=== PATIENT | male | born 1950 | race Caucasian/White ===

== ENCOUNTER 2021-01-16 09:09 | Inpatient (IN) ==
[2021-01-16] MEDS ORDERED: ONDANSETRON INJ 2 MG/ML 2 ML VIAL IV STA (10:11)
--- NOTE | 2021-01-16 10:14 | Emergency Department Note ---
Impression & Plan Diffuse abdominal pain, Anemia, Bladder cancer, Acute dehydration, Weakness ED Provider Note NAME: ARRON WHITLOCK AGE: 70 SEX: M : 1950 ARRIVES VIA: Walk-In INFORMANT: [Patient] ED PROVIDER(S): [Balbir Burnett MD] CHIEF COMPLAINT: Abdominal pain HISTORY OF PRESENT ILLNESS: The patient is a 70-year-old male who has not felt well for a month. He has lost 10 to 15 pounds. He feels weak. He has no appetite. He has had intermittent diarrhea and intermittent crampy abdominal pain. Currently, the pain is a 6 on a scale of 1-10. The patient states that he did finish some antibiotics for a port infection, he is not sure if this is related or not. The patient does have bladder cancer. His last chemotherapy was over 6 months ago. Recently, they found recurrence and he is scheduled for chemotherapy again tomorrow although, he feels it will be canceled. The patient went to his doctor's office today because of how he was doing, he was sent here for further work-up. There has been no cough or congestion. He has not had fever. He denies any difficulty moving his urine or any urinary burning. REVIEW OF SYSTEMS: See HPI for pertinent positives and negatives. A total of ten systems were reviewed and were otherwise negative. PMHx/PSHx: See Below SOCIAL HISTORY: See Below. PHYSICAL EXAM: GENERAL: Patient is in no acute distress. HEENT: No acute trauma, normocephalic atraumatic, mucous membranes moist, no nasal congestion, no scleral icterus. NECK: No stridor, no adenopathy, no meningismus, trachea is midline. LUNGS: Clear to auscultation bilaterally, no wheeze, no rhonchi, breath sounds equal. HEART: Without murmurs gallops or rubs, regular rate and rhythm. ABDOMEN: Soft, moderately diffusely tender, bowel sounds positive, no hernias, no peritonitis. EXTREMITIES: No cyanosis or edema, full range of motion of all the joints without pain or difficulty, no signs for acute trauma. NEUROLOGIC: Oriented x 3, no acute motor or sensory deficits, no focal weakness. SKIN: No rash, no jaundice, no diaphoresis. Groin: No scrotal erythema. Rectal: Brown stool, heme-negative, a firm mass was felt on my exam. DIFFERENTIAL DIAGNOSIS: Appendicitis, testicular torsion, infections, diverticulitis, UTI, obstruction, mesenteric ischemia, aortic pathology, inflammatory bowel disease, renal colic, PUD, pancreatitis, biliary pathology, hernia, volvulus, constipation, dehydration, malignancy, as well as other pathologies. EMERGENCY DEPARTMENT COURSE/PROCEDURES: ECG: Indication was weakness. The ECG shows a normal sinus rhythm with a rate of 63. There is no ST elevation, no PVCs. The QTc is 405. Continuous Cardiac Monitoring: An order was placed for continuous cardiac monitoring. The monitor shows a rate of 62 with normal sinus rhythm. Critical Care Note: I have personally spent 42 minutes of critical care time in the direct management of this patient. This includes bedside care, interpretation of diagnostic studies, and testing, discussion with consultants, patient, and family members, and other required patient management activities. This 42 minutes is in excess of all separately billable procedures. MEDICAL DECISION MAKING: There is a lower white blood cell count. The patient is anemic with a hemoglobin of 8.6. Rectal exam was performed, stool was brown and heme-neg ative. A mass was felt on rectal exam. There is a low platelet count at 31. No coagulopathy. Potassium is low at 3.1. No kidney failure. No concerning liver enzyme elevation. No evidence for pa ncreatitis. The patient appears to be in a euthyroid state. Urinalysis shows possible infection versus contamination. Stool C. difficile testing was negative. Digoxin level was therapeutic. Covid testing returned positive. ECG showed a sinus rhythm, no acute ischemia. Cardiac enzyme testing x1 is not consistent with acute cardiac injury. Chest x-ray does not show any pneumonia or CHF. Abdominal and pelvis CT shows worsening of his cancer with metastatic disease. No bowel obstruction. The patient received IV saline for hydration. He was given IV potassium, IV Zofran and IV morphine, he received IV ceftriaxone as antibiotic coverage. The patient presents with increasing weakness, weight loss, fatigue. He has findings suggestive of metastatic cancer. He is dehydrated. He has a low platelet count, he is anemic. He may have a UTI. He is Covid positive. He is failing outpatient treatment and is in need of a hospital stay. I spoke to the patient and case management, the on-call hospitalist was consulted. Past Med/Surg History Medical History Cancer BLADDER-CHEMO [id number]/20 FOLLOWING WITH [facility]- GOING TO GET REPEAT CT SCAN IN FUTURE Chronic back pain LOWER BACK Chronic prostatitis DVT (deep venous thrombosis) SUMMER 2019- DECREASED ACTIVITY SECONDARY TO BACK PAIN - HAD FILTER PLACED AND RECENTLY REMOVED History of COVID-19 HLD (hyperlipidemia) Metastatic urothelial carcinoma PAF (paroxysmal atrial fibrillation) Pancytopenia due to chemotherapy Pulmonary embolism SUMMER 2019-PLACED ON ELIQUIS Surgical History (Updated 01/16/21 @ 14:34 by Tosha Turner PA-C) History of arthroscopy RIGHT KNEE History of biopsy of bladder History of colonoscopy History of embolic filter insertion History of herniorrhaphy History of tonsillectomy Family History Aunt Family history of diabetes mellitus Mother Cancer Diabetes Father Stroke Social History Smoking Status: Never smoker Second Hand Exposure: Yes (FATHER SMOKED); Hx Alcohol Use: No Hx Substance Use: No Preferred Language: Italian Communication Ability: Effective Doll Wig Hackler Required: No Beliefs That Will Affect Care: None marital status: / Current Living Situation: Alone Feels Safe at Home: Yes Assistive Devices: Glasses Allergies Allergies Allergy/AdvReac Type Severity Reaction Status Date / Time Whjghlb-Dud-Uqb Reductase AdvReac Unknown SWELLING Verified 01/16/21 10:13 Inhibitor LEGS,MEMORY ISSUES Home Meds Home Medications Medication Instructions Recorded Confirmed digoxin 250 mcg PO HS 08/06/20 01/16/21 ondansetron HCl [Zofran] 8 mg PO Q8H PRN 08/06/20 01/16/21 prochlorperazine maleate 10 mg PO Q8H PRN 08/06/20 01/16/21 [Compazine] tramadol 50 mg PO Q4H PRN 08/06/20 01/16/21 [id number]-vit K-lycop 1 tab PO QAM 01/16/21 01/16/21 [One-A-Day Men's 50 Plus] Results & Data (ED) Vital Signs Vital Signs - 24 hr 01/16/21 09:16 01/16/21 10:21 01/16/21 10:38 Temperature 36.9 C Temperature Source Temporal Artery Scan Pulse Rate 92 H 68 Pulse Rate [Right Finger] 60 Pulse Rate from SpO2 Sensor Pulse Rhythm Regular Pulse Strength Normal Respiratory Rate 18 20 18 Respiratory Effort / Characteristics Non-Labored Spontaneous Non-Labored Respiratory Depth Normal Normal Blood Pressure 127/80 Blood Pressure [Right Arm] 150/83 H Blood Pressure Mean 95 Blood Pressure Mean [Right Arm] 105 Pulse Oximetry 99 100 100 Oxygen Delivery Method Room Air Room Air Room Air Sepsis Recent Fever Within 48 Hours No Sepsis New/Unexplained Change in Mental Status N/A Sepsis Action Taken by Nursing No Action Required 01/16/21 11:00 01/16/21 11:30 01/16/21 12:23 Temperature Temperature Source Pulse Rate 67 61 Pulse Rate [Right Finger] Pulse Rate from SpO2 Sensor 69 66 60 Pulse Rhythm Pulse Strength Respiratory Rate 15 18 Respiratory Effort / Characteristics Respiratory Depth Blood Pressure 154/91 H 161/89 H Blood Pressure [Right Arm] Blood Pressure Mean 112 113 Blood Pressure Mean [Right Arm] Pulse Oximetry 97 100 100 Oxygen Delivery Method Sepsis Recent Fever Within 48 Hours Sepsis New/Unexplained Change in Mental Status Sepsis Action Taken by Nursing 01/16/21 12:30 01/16/21 13:00 01/16/21 13:30 Temperature Temperature Source Pulse Rate 63 55 L 59 L Pulse Rate [Right Finger] Pulse Rate from SpO2 Sensor 63 56 L 59 L Pulse Rhythm Pulse Strength Respiratory Rate 10 L 14 12 Respiratory Effort / Characteristics Respiratory Depth Blood Pressure 153/83 H 169/85 H 153/85 H Blood Pressure [Right Arm] Blood Pressure Mean 106 113 107 Blood Pressure Mean [Right Arm] Pulse Oximetry 99 98 97 Oxygen Delivery Method Room Air Room Air Room Air Sepsis Recent Fever Within 48 Hours Sepsis New/Unexplained Change in Mental Status Sepsis Action Taken by Nursing 01/16/21 14:00 01/16/21 14:30 01/16/21 14:31 Temperature Temperature Source Pulse Rate 56 L 57 L 60 Pulse Rate [Right Finger] Pulse Rate from SpO2 Sensor 56 L 61 Pulse Rhythm Pulse Strength Respiratory Rate 16 16 17 Respiratory Effort / Characteristics Respiratory Depth Blood Pressure 154/88 H 167/92 H Blood Pressure [Right Arm] Blood Pressure Mean 110 117 Blood Pressure Mean [Right Arm] Pulse Oximetry 100 99 Oxygen Delivery Method Room Air Room Air Sepsis Recent Fever Within 48 Hours Sepsis New/Unexplained Change in Mental Status Sepsis Action Taken by Nursing 01/16/21 15:00 01/16/21 15:30 01/16/21 16:00 Temperature Temperature Source Pulse Rate 62 57 L 62 Pulse Rate [Right Finger] Pulse Rate from SpO2 Sensor 63 58 L 63 Pulse Rhythm Pulse Strength Respiratory Rate 20 18 12 Respiratory Effort / Characteristics Respiratory Depth Blood Pressure 159/96 H 158/85 H 146/77 H Blood Pressure [Right Arm] Blood Pressure Mean 117 109 100 Blood Pressure Mean [Right Arm] Pulse Oximetry 100 95 96 Oxygen Delivery Method Room Air Room Air Room Air Sepsis Recent Fever Within 48 Hours Sepsis New/Unexplained Change in Mental Status Sepsis Action Taken by Nursing 01/16/21 16:30 01/16/21 17:00 01/16/21 17:30 Temperature Temperature Source Pulse Rate 76 59 L 62 Pulse Rate [Right Finger] Pulse Rate from SpO2 Sensor 59 L 62 Pulse Rhythm Pulse Strength Respiratory Rate 10 L 20 17 Respiratory Effort / Characteristics Respiratory Depth Blood Pressure 134/77 127/71 121/67 Blood Pressure [Right Arm] Blood Pressure Mean 96 89 85 Blood Pressure Mean [Right Arm] Pulse Oximetry 93 95 96 Oxygen Delivery Method Room Air Room Air Sepsis Recent Fever Within 48 Hours Sepsis New/Unexplained Change in Mental Status Sepsis Action Taken by [facility] Medications Current Medication List: was personally reviewed by me Laboratory Data Attestation: I reviewed the patient's lab results. Result diagrams: 01/16/21 10:43 01/16/21 10:48 Lab Results 01/16/21 01/16/21 01/16/21 Range/Units 10:11 10:11 10:43 WBC 3.82 L (4.8-10.8) K/uL RBC 2.91 L (4.7-6.1) M/uL Hgb 8.6 L (14.0-18.0) g/dL Hct 25.6 L (42-52) % MCV 88.0 (80-100) fL MCH 29.6 (25-34) pg MCHC 33.6 (32-36) g/dL RDW Std Deviation 52.4 H (36.4-46.3) fL RDW Coeff of Dg 16.3 H (11.5-14.5) % Plt Count 31 L (130-400) K/uL Immature Gran % (Auto) 1.0 % Neut % (Auto) 59.4 % Lymph % (Auto) 22.5 % [place] % (Auto) 16.8 % Eos % (Auto) 0.3 % Baso % (Auto) 0.0 % Neut # (Auto) 2.27 (1.4-6.5) K/uL Lymph # (Auto) 0.86 L (1.2-3.4) K/uL [place] # (Auto) 0.64 H (0.11-0.59) K/uL Eos # (Auto) 0.01 (0-0.5) K/uL Baso # (Auto) 0.00 (0-0.2) K/uL Immature Gran # (Auto) 0.04 H (0.00-0.02) K/uL Platelet Estimate Decreased L (Normal) RBC Morphology Unremarkable PT 11.4 (9.0-12.0) Seconds INR 1.1 (0.9-1.1) APTT 25.8 (21.0-31.0) Seconds PTT Ratio 1.0 Sodium (136-145) mmol/L Potassium (3.5-5.1) mmol/L Chloride (98-107) mmol/L Carbon Dioxide (21-32) mmol/L Anion Gap (3-11) BUN (7-18) mg/dl Creatinine (0.6-1.4) mg/dl Est Cr Clr Drug Dosing ml/min Est GFR ( Amer) ml/min Est GFR (Non-Af Amer) ml/min BUN/Creatinine Ratio (10-20) Glucose (70-99) mg/dl Lactate (0.4-2.0) mmol/L Calcium (8.5-10.1) mg/dl Magnesium (1.8-2.4) mg/dl Total Bilirubin (0.2-1) mg/dl AST (15-37) U/L ALT (12-78) U/L Alkaline Phosphatase (45-117) U/L Troponin I (0-0.045) ng/ml Total Protein (6.4-8.2) gm/dl Albumin (3.4-5.0) gm/dl Globulin (2.5-4.0) gm/dl Albumin/Globulin Ratio (0.9-2) Lipase (73-393) U/L TSH (0.300-4.500) uIu/ml Urine Color Urine Appearance (Clear) Urine pH (4.5-7.5) Ur Specific [place] (1.000-1.030) Urine Protein (Negative) Urine Glucose (UA) (Negative) Urine Ketones (Negative) Urine Blood (Negative) Urine Nitrite (Negative) Urine Bilirubin (Negative) Urine Urobilinogen (Negative) Ur Leukocyte Esterase (Negative) Urine WBC (Auto) (0-5) /hpf Urine RBC (Auto) (0-4) /hpf U Hyaline Cast (Auto) (0-5) /lpf U Epithel Cells (Auto) (0-5) /lpf Urine Bacteria (Auto) (Negative) Ur Renal Epithelial Cell Granular Casts (0) /lpf Stl C. diff Tox B Gene (Neg) Digoxin 1.5 (0.8-2.0) ng/ml COVID-19 Eval Order SARS-CoV-2 (PCR) (Negative) 01/16/21 01/16/21 01/16/21 Range/Units 10:48 11:18 11:18 WBC (4.8-10.8) K/uL RBC (4.7-6.1) M/uL Hgb (14.0-18.0) g/dL Hct (42-52) % MCV (80-100) fL MCH (25-34) pg MCHC (32-36) g/dL RDW Std Deviation (36.4-46.3) fL RDW Coeff of Dg (11.5-14.5) % Plt Count (130-400) K/uL Immature Gran % (Auto) % Neut % (Auto) % Lymph % (Auto) % [place] % (Auto) % Eos % (Auto) % Baso % (Auto) % Neut # (Auto) (1.4-6.5) K/uL Lymph # (Auto) (1.2-3.4) K/uL [place] # (Auto) (0.11-0.59) K/uL Eos # (Auto) (0-0.5) K/uL Baso # (Auto) (0-0.2) K/uL Immature Gran # (Auto) (0.00-0.02) K/uL Platelet Estimate (Normal) RBC Morphology PT (9.0-12.0) Seconds INR (0.9-1.1) APTT (21.0-31.0) Seconds PTT Ratio Sodium 137 (136-145) mmol/L Potassium 3.1 L (3.5-5.1) mmol/L Chloride 100 (98-107) mmol/L Carbon Dioxide 27 (21-32) mmol/L Anion Gap 10.0 (3-11) BUN 13 (7-18) mg/dl Creatinine 1.01 (0.6-1.4) mg/dl Est Cr Clr Drug Dosing 74.8 ml/min Est GFR ( Amer) 87.6 ml/min Est GFR (Non-Af Amer) 75.5 ml/min BUN/Creatinine Ratio 12.8 (10-20) Glucose 71 (70-99) mg/dl Lactate (0.4-2.0) mmol/L Calcium 9.8 (8.5-10.1) mg/dl Magnesium 2.0 (1.8-2.4) mg/dl Total Bilirubin 0.5 (0.2-1) mg/dl AST 20 (15-37) U/L ALT 14 (12-78) U/L Alkaline Phosphatase 73 (45-117) U/L Troponin I < 0.015 (0-0.045) ng/ml Total Protein 7.5 (6.4-8.2) gm/dl Albumin 3.3 L (3.4-5.0) gm/dl Globulin 4.2 H (2.5-4.0) gm/dl Albumin/Globulin Ratio 0.8 L (0.9-2) Lipase 59 L (73-393) U/L TSH 3.100 (0.300-4.500) uIu/ml Urine Color Dark Yellow Urine Appearance Cloudy A (Clear) Urine pH 5.5 (4.5-7.5) Ur Specific [place] 1.022 (1.000-1.030) Urine Protein 1+ H (Negative) Urine Glucose (UA) Negative (Negative) Urine Ketones 3+ H (Negative) Urine Blood Negative (Negative) Urine Nitrite Negative (Negative) Urine Bilirubin 1+ H (Negative) Urine Urobilinogen Negative (Negative) Ur Leukocyte Esterase 1+ H (Negative) Urine WBC (Auto) >30 H (0-5) /hpf Urine RBC (Auto) 0-4 (0-4) /hpf U Hyaline Cast (Auto) 1-5 (0-5) /lpf U Epithel Cells (Auto) >30 H (0-5) /lpf Urine Bacteria (Auto) Negative (Negative) Ur Renal Epithelial Cell Not Reportable Granular Casts 1-5 H (0) /lpf Stl C. diff Tox B Gene Negative Cdiff Gene (Neg) Digoxin (0.8-2.0) ng/ml COVID-19 Eval Order SARS-CoV-2 (PCR) (Negative) 01/16/21 01/16/21 01/16/21 Range/Units 11:42 13:20 13:20 WBC (4.8-10.8) K/uL RBC (4.7-6.1) M/uL Hgb (14.0-18.0) g/dL Hct (42-52) % MCV (80-100) fL MCH (25-34) pg MCHC (32-36) g/dL RDW Std Deviation (36.4-46.3) fL RDW Coeff of Dg (11.5-14.5) % Plt Count (130-400) K/uL Immature Gran % (Auto) % Neut % (Auto) % Lymph % (Auto) % [place] % (Auto) % Eos % (Auto) % Baso % (Auto) % Neut # (Auto) (1.4-6.5) K/uL Lymph # (Auto) (1.2-3.4) K/uL [place] # (Auto) (0.11-0.59) K/uL Eos # (Auto) (0-0.5) K/uL Baso # (Auto) (0-0.2) K/uL Immature Gran # (Auto) (0.00-0.02) K/uL Platelet Estimate (Normal) RBC Morphology PT (9.0-12.0) Seconds INR (0.9-1.1) APTT (21.0-31.0) Seconds PTT Ratio Sodium (136-145) mmol/L Potassium (3.5-5.1) mmol/L Chloride (98-107) mmol/L Carbon Dioxide (21-32) mmol/L Anion Gap (3-11) BUN (7-18) mg/dl Creatinine (0.6-1.4) mg/dl Est Cr Clr Drug Dosing ml/min Est GFR ( Amer) ml/min Est GFR (Non-Af Amer) ml/min BUN/Creatinine Ratio (10-20) Glucose (70-99) mg/dl Lactate 1.0 (0.4-2.0) mmol/L Calcium (8.5-10.1) mg/dl Magnesium (1.8-2.4) mg/dl Total Bilirubin (0.2-1) mg/dl AST (15-37) U/L ALT (12-78) U/L Alkaline Phosphatase (45-117) U/L Troponin I (0-0.045) ng/ml Total Protein (6.4-8.2) gm/dl Albumin (3.4-5.0) gm/dl Globulin (2.5-4.0) gm/dl Albumin/Globulin Ratio (0.9-2) Lipase (73-393) U/L TSH (0.300-4.500) uIu/ml Urine Color Urine Appearance (Clear) Urine pH (4.5-7.5) Ur Specific [place] (1.000-1.030) Urine Protein (Negative) Urine Glucose (UA) (Negative) Urine Ketones (Negative) Urine Blood (Negative) Urine Nitrite (Negative) Urine Bilirubin (Negative) Urine Urobilinogen (Negative) Ur Leukocyte Esterase (Negative) Urine WBC (Auto) (0-5) /hpf Urine RBC (Auto) (0-4) /hpf U Hyaline Cast (Auto) (0-5) /lpf U Epithel Cells (Auto) (0-5) /lpf Urine Bacteria (Auto) (Negative) Ur Renal Epithelial Cell Granular Casts (0) /lpf Stl C. diff Tox B Gene (Neg) Digoxin (0.8-2.0) ng/ml COVID-19 Eval Order Covid19 at [facility] SARS-CoV-2 (PCR) POSITIVE A* (Negative) Administered Medications Morphine Sulfate (Morphine Sulfate 4 Mg/Ml 1 Ml Carp\Vial) 4 mg IV Q30M PRN PRN Reason: Pain Stop: 01/30/21 10:10 Last Admin: 01/16/21 13:24 Dose: 4 mg Documented by: [id number] Admin: 01/16/21 12:24 Dose: 4 mg Documented by: [id number] Admin: 01/16/21 11:26 Dose: 4 mg Documented by: [id number] Discontinued Medications Sodium Chloride (Nss 1000ml) 1,000 mls @ 999 mls/hr IV .Q1H1M OSMANI Stop: 01/16/21 11:15 Last Infusion: 01/16/21 12:01 Dose: 0 mls/hr Documented by: [id number] Admin: 01/16/21 11:00 Dose: 999 mls/hr Documented by: [id number] Potassium Chloride (K Lyndon / Wtr) 10 meq in 100 mls @ 100 mls/hr IV ONE ONE Stop: 01/16/21 12:45 Last Infusion: 01/16/21 13:27 Dose: 0 mls/hr Documented by: [id number] Admin: 01/16/21 12:27 Dose: 100 mls/hr Documented by: [id number] Ceftriaxone Sodium (Rocephin) 1,000 mg in 50 mls @ 100 mls/hr IV NOW STA Stop: 01/16/21 13:30 Last Infusion: 01/16/21 13:57 Dose: 0 mls/hr Documented by: [id number] Admin: 01/16/21 13:27 Dose: 100 mls/hr Documented by: [id number] Ioversol (Optiray 300 100ml) 85 ml IV ONCE ONE Stop: 01/16/21 12:08 Last Admin: 01/16/21 12:07 Dose: 85 ml Documented by: [id number] Ondansetron HCl (Ondansetron Inj 2 Mg/Ml 2 Ml Vial) 4 mg IV NOW STA Stop: 01/16/21 10:12 Last Admin: 01/16/21 11:26 Dose: 4 mg Documented by: [id number] Potassium Chloride (Potassium Chloride 10 Meq Tabcr) 30 meq PO NOW STA Stop: 01/16/21 14:10 Last Admin: 01/16/21 14:23 Dose: 30 meq Documented by: [id number] Imaging Data Radiologist's Impression: Chest X-Ray 01/16/21 10:11 XR chest 1V portable CLINICAL HISTORY: weakness COMPARISON STUDY: No previous studies for comparison. FINDINGS: Lung volumes are normal. Lungs are clear. There is no pneumothorax or pleural effusion. Cardiac size is normal. Mediastinal contours are normal. There is no evidence for pulmonary edema. Right internal jugular [id number]-i-Jehh is in place. A 2.1 cm nodular opacity projects over the left lower lung. IMPRESSION: 1. No acute cardiopulmonary findings. 2. 1 cm nodular opacity which projects over the left lower lung. This could reflect a nipple shadow or pulmonary nodule. Nonemergent PA and shallow oblique radiographs of the chest with nipple markers could be obtained. ACT 112: Negative or not required by law. Electronically signed by: Polo Smith M.D. 01/16/2021 10:39 AM Abdomen/Pelvis CT 01/16/21 10:14 CT SCAN OF THE ABDOMEN AND PELVIS WITH IV CONTRAST CLINICAL HISTORY: Lower abdominal pain. Diarrhea. Bladder cancer. COMPARISON STUDY: No priors. TECHNIQUE: Following the IV administration of 85 cc of Optiray, CT scan of the abdomen and pelvis is performed from the lung bases to the proximal femora. Images are reviewed in the axial, sagittal, and coronal planes. IV contrast was administered without complication. A dose lowering technique was utilized adhering to the principles of ALARA. CT DOSE: 418.75 mGy.cm FINDINGS: Lung bases: The heart is top normal in size and without pericardial effusion. There are coronary artery calcifications. There is a 2 cm lobular pulmonary nodules seen at the left lung base on image #7. A 0.9 cm irregular pulmonary nodules seen at the right lung base on image #43. No airspace consolidation or pleural effusion is identified. A fat-containing Bochdalek hernia is noted at the right lung base. There is bibasilar scarring/atelectasis. Liver: The contrast-enhanced liver is normal in size, contour, and attenuation. There is no intrahepatic biliary ductal dilatation. The hepatic veins and portal veins are patent. Gallbladder: A calcified gallstone measures at least 2 cm[address] is no [address] evidence of acute cholecystitis. Spleen: The spleen is mildly enlarged measuring 13.7 cm in length. Pancreas: Unremarkable. Adrenal glands: Unremarkable. Kidneys: The contrast enhanced kidneys demonstrate mild cortical atrophy. There is mild to moderate left hydroureteronephrosis. No hydronephrosis is seen on the right. There is a 4 mm nonobstructing calculus in the right lower pole. The kidneys enhance symmetrically. Bilateral renal cysts measure up to 1.5 cm. Additional subcentimeter cortical hypodensities also likely represent cysts but are too small for definitive characterization. Abdominal vasculature: The abdominal aorta is normal in course and caliber noting mild to moderate atherosclerotic calcification. Bowel: Residual enteric contrast is noted in the colon. There is no bowel obstruction. There is circumferential rectal wall thickening and perirectal inflammation. The rectosigmoid colon is encased by pelvic mass lesions. The appendix is well-visualized and normal. Peritoneum: There is trace perihepatic ascites. No intraperitoneal free air is identified. There are numerous subcentimeter peritoneal nodules (best seen on axial image #187). Lymphadenopathy: There is bulky retroperitoneal and iliac chain lymphadenopathy. A left periaortic cameron aggregate on image #142 measures 3.3 x 2.1 cm. A right iliac chain node on image #291 measures 2.3 x 2.0 cm. The enlarged retrocrural node on image #62 measures 1.7 x 1.2 cm. Pelvic viscera: The prostate gland is enlarged and markedly heterogeneous, measuring 5.4 cm transverse diameter. There is median lobe hypertrophy. The bladder is decompressed and not assessed. The bladder wall is partially thickened and there is pericystic inflammation. Hyperdense material is suggested within the bladder lumen and may represent excreted contrast versus blood products. There are large mass lesions identified in the pelvis which are locate d posterior to the bladder and surrounding the rectosigmoid colon. A lesion in the left posterior pelvis on image #308 measures approximately 5 x 2.5 cm. A lesion anterior to the sacrum measures approximately 5 x 3.5 cm. Skeletal structures: The skeletal structures are osteopenic. There is mild lumbosacral spondylosis. No lytic or blastic lesions are seen. IMPRESSION: 1. Findings are consistent with widespread metastatic disease. 2. The bladder is decompressed and not well evaluated. Hyperdense material within the bladder lumen may represent excreted IV contrast or possibly blood products. 3. There is significant wall thickening with surrounding inflammation involving the bladder and rectum. This may be represent treatment related radiation cysti tis/proctitis. Clinical correlation will be required. 4. There are bulky mass lesions identified in the pelvis consistent with metastatic disease. These encase the rectosigmoid colon which does not appear obstructed. 5. There is bulky retroperitoneal and iliac chain lymphadenopathy. 6. There are at least 2 pulmonary nodules identified at the lung bases, likely representing metastatic disease. 7. There is evidence of peritoneal carcinomatosis. 8. There is mild to moderate left hydroureteronephrosis, likely related to pelvic mass lesions. 9. Cholelithiasis. 10. Mild splenomegaly. 11. Trace abdominal ascites. 12. Right-sided nephrolithiasis. 13. Additional findings as above. ACT 112: Positive. There are findings on this exam that require communication between the performing entity and the patient following Patient Test Result Information Act ([place] Act 112) guidelines. Electronically signed by: Balbir Anaya M.D. 01/16/2021 12:45 PM Discharge Plan Visit Data Chief Complaint: Abdominal Pain Stated Complaint: PAIN IN STOMACH/DR REFERRED HIM ED Provider: Balbir Burnett Discharge Problem: Diffuse abdominal pain, Anemia, Bladder cancer, Acute dehydration, Weakness Patient Disposition: Admitted As Inpatient Condition: Fair Forms Stand Alone Forms: [facility] [employer] Prescriptions Prescriptions: No Action ondansetron HCl [Zofran] 8 mg Tablet 8 mg PO Q8H PRN (Reason: Nausea) RF: 0 prochlorperazine maleate [Compazine] 10 mg Tablet 10 mg PO Q8H PRN (Reason: Nausea) RF: 0 digoxin 250 mcg (0.25 mg) Tablet 250 mcg PO HS RF: 0 tramadol 50 mg Tablet 50 mg PO Q4H PRN (Reason: Pain) RF: 0 One-A-Day Men's 50 Plus 400-20-370 mcg Tablet 1 tab PO QAM RF: 0 Referrals Referrals: Phillip Rosas MD [Primary Care Provider] - Discharge Problem: Anemia Qualifiers: Anemia type: unspecified type Qualified Code(s): D64.9 - Anemia, unspecified Bladder cancer Qualifiers: Bladder location: unspecified site Qualified Code(s): C67.9 - Malignant neoplasm of bladder, unspecified
[2021-01-16] MEDS ORDERED: SODIUM CHLORIDE 0.9% 1,000 ML IV SCH (10:15)
--- NOTE | 2021-01-16 10:40 | XRay Report ---
XR chest 1V portable CLINICAL HISTORY: weakness COMPARISON STUDY: No previous studies for comparison. FINDINGS: Lung volumes are normal. Lungs are clear. There is no pneumothorax or pleural effusion. Car diac size is normal. Mediastinal contours are normal. There is no evidence for pulmonary edema. Right internal jugular [id number] is in place. A 2.1 cm nodular opacity projects over the left lower sriram ng. IMPRESSION: 1. No acute cardiopulmonary findings. 2. 1 cm nodular opacity which projects over the left lower lung. This could reflect a nipple shadow o r pulmonary nodule. Nonemergent PA and shallow oblique radiographs of the chest with nipple markers c ould be obtained. ACT 112: Negative or not required by law. Electronically signed by: Polo Smith M.D. 01/16/2021 10:39 AM
[2021-01-16] MEDS: MoRPHine SULFATE 4 MG/ML 1 ML CARP\\VIAL IV PRN ×3 (11:26→13:24)
[2021-01-16 11:28] LABS: INR 1.1 (0.9-1.1); Partial Thromboplastin Time 25.8 Seconds (21.0-31.0); Prothrombin Time 11.4 Seconds (9.0-12.0)
[2021-01-16 11:34] LABS: Albumin Level 3.3 gm/dl (3.4-5.0); Aspartate Aminotransferase 20 U/L (15-37); BUN Creatinine Ratio 12.8 (10-20); Blood Urea Nitrogen 13 mg/dl (7-18); Calcium 9.8 mg/dl (8.5-10.1); Carbon Dioxide 27 mmol/L (21-32); Chloride 100 mmol/L (98-107); Creatinine Clr Calc Pharmacy 74.8 ml/min; Est GFR (African American) 87.6 ml/min; Est GFR (Non-African American) 75.5 ml/min; Glucose 71 mg/dl (70-99); Lipase 59 U/L (73-393); Potassium 3.1 mmol/L (3.5-5.1); Sodium 137 mmol/L (136-145)
[2021-01-16 11:35] LABS: Appearance Urine Cloudy (Clear); Bacteria Urine Automated Negative (Negative); Blood Urine Negative (Negative); Color Urine Dark Yellow; Epithelial Cell Urine Auto >30 /lpf (0-5); Glucose Urine UA Negative (Negative); Ketones Urine 3+ (Negative); Leukocyte Esterase Urine 1+ (Negative); Nitrite Urine Negative (Negative); Protein Urine 1+ (Negative); RBC Urine Automated 0-4 /hpf (0-4); Specific Gravity Urine 1.022 (1.000-1.030); Urobilinogen Urine Negative (Negative); WBC Urine Automated >30 /hpf (0-5); pH Urine 5.5 (4.5-7.5)
[2021-01-16 11:36] LABS: Hematocrit (blood only) 25.6 % (42-52); Hemoglobin 8.6 g/dL (14.0-18.0); Mean Corpuscular Hemoglobin 29.6 pg (25-34); RDW Coefficient of Variation 16.3 % (11.5-14.5); RDW Standard Deviation 52.4 fL (36.4-46.3); Red Blood Count 2.91 M/uL (4.7-6.1); White Blood Count 3.82 K/uL (4.8-10.8)
[2021-01-16 11:37] LABS: Mean Corpuscular Hgb Conc 33.6 g/dL (32-36)
[2021-01-16 11:39] LABS: Platelet Count 31 K/uL (130-400)
[2021-01-16 11:40] LABS: Eosinophils # (auto) 0.01 K/uL (0-0.5); Eosinophils % (auto) 0.3 %; Immature Granulocytes # (auto) 0.04 K/uL (0.00-0.02); Lymphocytes # (auto) 0.86 K/uL (1.2-3.4); Lymphocytes % (auto) 22.5 %; Monocytes # (auto) 0.64 K/uL (0.11-0.59); Monocytes % (auto) 16.8 %; Neutrophils # (auto) 2.27 K/uL (1.4-6.5); Neutrophils % (auto) 59.4 %; Platelet Estimate Decreased (Normal); RBC Morphology Unremarkable
[2021-01-16 11:45] LABS: Alanine Aminotransferase 14 U/L (12-78); Albumin Globulin Ratio 0.8 (0.9-2); Alkaline Phosphatase 73 U/L (45-117); Bilirubin,Total 0.5 mg/dl (0.2-1); Globulin 4.2 gm/dl (2.5-4.0); Total Protein 7.5 gm/dl (6.4-8.2); Troponin I < 0.015 ng/ml (0-0.045)
[2021-01-16] MEDS ORDERED: POTASSIUM CHLORIDE / WTR 10 MEQ/100 ML PLCT IV ONE (11:46)
[2021-01-16 11:54] LABS: Bilirubin Urine 1+ (Negative)
[2021-01-16] MEDS ORDERED: OPTIRAY 300 100mL IV ONE (12:07)
--- NOTE | 2021-01-16 12:46 | CT Scan Report ---
CT SCAN OF THE ABDOMEN AND PELVIS WITH IV CONTRAST CLINICAL HISTORY: Lower abdominal pain. Diarrhea. Bladder cancer. COMPARISON STUDY: No priors. TECHNIQUE: Following the IV administration of 85 cc of Optiray, CT scan of the abdomen and pelvis is performed from the lung bases to the proximal femora. Images are reviewed in the axial, sagittal, an d coronal planes. IV contrast was administered without complication. A dose lowering technique was ut ilized adhering to the principles of ALARA. CT DOSE: 418.75 mGy.cm FINDINGS: Lung bases: The heart is top normal in size and without pericardial effusion. There are coronary philip ry calcifications. There is a 2 cm lobular pulmonary nodules seen at the left lung base on image #7. A 0.9 cm irregular pulmonary nodules seen at the right lung base on image #43. No airspace consolidat ion or pleural effusion is identified. A fat-containing Bochdalek hernia is noted at the right lung b ase. There is bibasilar scarring/atelectasis. Liver: The contrast-enhanced liver is normal in size, contour, and attenuation. There is no intrahepa tic biliary ductal dilatation. The hepatic veins and portal veins are patent. Gallbladder: A calcified gallstone measures at least 2 [address] no [address] evidence of acute cholecyst itis. Spleen: The spleen is mildly enlarged measuring 13.7 cm in length. Pancreas: Unremarkable. Adrenal glands: Unremarkable. Kidneys: The contrast enhanced kidneys demonstrate mild cortical atrophy. There is mild to moderate l eft hydroureteronephrosis. No hydronephrosis is seen on the right. There is a 4 mm nonobstructing renuka culus in the right lower pole. The kidneys enhance symmetrically. Bilateral renal cysts measure up to 1.5 cm. Additional subcentimeter cortical hypodensities also likely represent cysts but are too smal l for definitive characterization. Abdominal vasculature: The abdominal aorta is normal in course and caliber noting mild to moderate at herosclerotic calcification. Bowel: Residual enteric contrast is noted in the colon. There is no bowel obstruction. There is circu mferential rectal wall thickening and perirectal inflammation. The rectosigmoid colon is encased by p elvic mass lesions. The appendix is well-visualized and normal. Peritoneum: There is trace perihepatic ascites. No intraperitoneal free air is identified. There are numerous subcentimeter peritoneal nodules (best seen on axial image #187). Lymphadenopathy: There is bulky retroperitoneal and iliac chain lymphadenopathy. A left periaortic no lon aggregate on image #142 measures 3.3 x 2.1 cm. A right iliac chain node on image #291 measures 2. 3 x 2.0 cm. The enlarged retrocrural node on image #62 measures 1.7 x 1.2 cm. Pelvic viscera: The prostate gland is enlarged and markedly heterogeneous, measuring 5.4 cm transvers e diameter. There is median lobe hypertrophy. The bladder is decompressed and not assessed. The bladd er wall is partially thickened and there is pericystic inflammation. Hyperdense material is suggested within the bladder lumen and may represent excreted contrast versus blood products. There are large mass lesions identified in the pelvis which are located posterior to the bladder and surrounding the rectosigmoid colon. A lesion in the left posterior pelvis on image #308 measures approximately 5 x 2. 5 cm. A lesion anterior to the sacrum measures approximately 5 x 3.5 cm. Skeletal structures: The skeletal structures are osteopenic. There is mild lumbosacral spondylosis. N o lytic or blastic lesions are seen. IMPRESSION: 1. Findings are consistent with widespread metastatic disease. 2. The bladder is decompressed and not well evaluated. Hyperdense material within the bladder lumen m ay represent excreted IV contrast or possibly blood products. 3. There is significant wall thickening with surrounding inflammation involving the bladder and rectu m. This may be represent treatment related radiation cystitis/proctitis. Clinical correlation will be required. 4. There are bulky mass lesions identified in the pelvis consistent with metastatic disease. These en case the rectosigmoid colon which does not appear obstructed. 5. There is bulky retroperitoneal and iliac chain lymphadenopathy. 6. There are at least 2 pulmonary nodules identified at the lung bases, likely representing metastati c disease. 7. There is evidence of peritoneal carcinomatosis. 8. There is mild to moderate left hydroureteronephrosis, likely related to pelvic mass lesions. 9. Cholelithiasis. 10. Mild splenomegaly. 11. Trace abdominal ascites. 12. Right-sided nephrolithiasis. 13. Additional findings as above. ACT 112: Positive. There are findings on this exam that require communication between the performing entity and the patient following Patient Test Result Information Act ([place] Act 112) guidelines. Electronically signed by: Balbir Anaya M.D. 01/16/2021 12:45 PM
[2021-01-16] MEDS ORDERED: cefTRIAXone SODIUM 1,000 MG/50 ML BAG IV STA (13:01)
[2021-01-16] MEDS ORDERED: POTASSIUM CHLORIDE 10 MEQ TABCR PO STA (14:09)
--- NOTE | 2021-01-16 14:21 | History & Physical Report ---
Date of Service January 16, 2021 Assessment & Plan (1) Metastatic urothelial carcinoma: (2) Pancytopenia due to chemotherapy: (3) Peritoneal carcinomatosis: (4) History of COVID-19: (5) Abdominal pain: (6) Diarrhea: (7) Hypokalemia: This is a 67-year-old male who has significant past medical history of PAF, HLD, metastatic bladder CA, chronic prostatitis pancytopenia secondary to chemotherapy, history of recent COVID-19 infection presents to ED at the referral of oncology secondary to abdominal pain, weight loss and diarrhea x1 month. Initial diagnosis 06/2018 Status post TURBT local BCG treatment x6 -completed October 2018 Cisplatin and gemcitabine q. 21 days for 4 cycles As of 09/12/2020 he received 4 cycles of chemotherapy Currently has been off chemotherapy for several weeks Follows [facility] hematology/oncology Had CT scan 08/2020 -revealed interval improvement of left periaortic and bilateral pelvic lymphadenopathy, subcentimeter paracaval lymph nodes increased from prior studies, paraesophageal and left hilar adenopathy unchanged, improvem ent in left lower lobe pulmonary nodule. Repeat CT 01/08/21: revealed diffuse perivesicular stranding, interval increase in size of some pelvic retroperitoneal lymph nodes, new mild left renal hydronephrosis with dilation of ureter to the left mid ureter which may reflect extrinsic compression from metastatic lymphadenopathy, ill-defined soft tissue mass in the pelvis which may relate to conglomerate lymphadenopathy increased from prior study also likely worsened metastatic disease, increase in size of metastatic nodule in the left lower lobe. Had repeat done 01/14 as outpt unchanged Imaging today in ED CT a/p: Findings are consistent with widespread metastatic disease. There is significant wall thickening with surrounding inflammation involving the bladder and rectum. This may be represent treatment related radiation cystitis/proctitis. There are bulky mass lesions identified in the pelvis consistent with metastatic disease. These encase the rectosigmoid colon which does not appear obstructed. There is bulky retroperitoneal and iliac chain lymphadenopathy. There are at least 2 pulmonary nodules identified at the lung bases, likely representing metastatic disease. There is evidence of peritoneal carcinomatosis. 8. There is mild to moderate left hydroureteronephrosis, likely related to pelvic mass lesions. Trace abdominal ascites. Pt with clearly widespread metastatic disease of urothelial cell carcinoma with evidence of metastasis to retroperitoneal, iliac chain adenopathy, masslike lesions extending into rectosigmoid colon, pelvic mass lesions extending and compressing on left ureter and evidence of likely peritoneal carcinomatosis. Peritoneal carcinomatosis was not mentioned on prior imaging. Abdominal pain may be in setting of progressing widespread metastatic disease; however infection not entirely ruled out Blood, urine and stool cultures are all pending Treat with IV empiric Rocephin until culture result, add probiotic Admit to med telemetry He is DNR/DNI and wishes for comfort - IVF and antibiotics okay, NO for artificial nutrition or life support Consult palliative care for further establishment of goals of care and pain management IV fluid plus KCl 100 cc/h x 2 L, reevaluate in a.m. Supplement potassium with 30 M EQ orally IV morphine 2 mg every 2 hours as needed severe pain, oral tramadol for moderate pain Consult dietitian PT/OT Hypokalemia replace Weakness and Unintentional weight loss likely in setting of recent covid infection/metastatic disease consult human capital manager PT/OT PAF continue digoxin pt currently in NSR Pancytopenia wbc 3.83 h/h 8.6/25.6 plt 31 no transfusion required at this time monitor DNR/DNI PCP: Alison DVT ppx: SCDs/Teds given thrombocytopenia Pt was seen and examined in collaboration with Dr. Hastings, please see addendum History of Present Illness Chief Complaint: Abdominal pain, weakness and weight loss x 1 month. Primary Care Provider: Phillip Rosas MD This is a 67-year-old male who has significant past medical history of PAF, HLD, metastatic bladder CA, chronic prostatitis pancytopenia secondary to chemotherapy, history of recent COVID-19 infection presents to ED at the referral of oncology secondary to abdominal pain, weight loss and diarrhea x1 month. Daughter is at bedside who provides most of history secondary to fatigue and weakness outpatient. She elicits approximately 3 weeks ago patient was diagnosed with COVID-19 and had fever, chills, respiratory symptoms and fatigue. He recovered from this without any pulmonary involvement. Through the past month he has been complaining of significant abdominal pain, suprapubic and bilateral lower quadrants. Pain is constant, nothing makes it better or worse. He has lost 23 pounds in the past month and overall has had significant decrease water intake. He is drinking water to try to stay hydrated. He also has multiple loose stools a day despite lack of oral intake. He recently was on a course of antibiotics due to a subcutaneous tissue for infection. Oncology was concern for possible C. difficile which is why he was referred to ED. Patient denies any recent fever, chills, sweats, syncope, chest pain, shortness of breath, cough, nausea, vomiting, dysuria, increased urgency or frequency with urination, hematuria, melena or hematochezia. He does feel lightheaded when walking and overall generally weak. In regards to metastatic bladder cancer initially was diagnosed in 06/2018. He had a TURBT, local BCG treatment x6 completed October 2018, cisplatin and gemcitabine q. 21 days for 4 cycles. As of 09/12/2020 he had received 4 cycles of chemotherapy and is currently been off chemotherapy since. Patient did undergo CT abdomen pelvis 01/08/2021 revealed diffuse perivesicular stranding, interval increase in size of some pelvic retroperitoneal lymph nodes, mild left renal hydronephrosis with dilation of ureter to the left mid ureter which may reflect extrinsic compression from metastatic lymphadenopathy, ill-defined soft tissue mass in the pelvis which may relate to conglomerate lymphadenopathy increased from prior study also likely worsened metastatic disease, increase in size of metastatic nodule in the left lower lobe. Given persistent abdominal pain ER repeat scan on 01/13 which did not reveal any worsened findings. CT scan abdomen pelvis today revealed similar findings; however it did also reveal evidence of peritoneal carcinomatosis and trace abdominal ascites. His stool for C. difficile was negative in ED. ER provider perform rectal exam which was heme negative, revealed brown stool and he did hit masslike lesion. He remained hemodynamically stable in ER. There are no signs or symptoms of sepsis. He is afebrile and WBC is 3.82. Allergies Allergy/AdvReac Type Severity Reaction Status Date / Time Zsdnksh-Qvb-Xto Reductase AdvReac Unknown SWELLING Verified 01/16/21 10:13 Inhibitor LEGS,MEMORY ISSUES Home Medications Medication Instructions Recorded Confirmed Type digoxin 250 mcg PO HS 08/06/20 01/16/21 History ondansetron HCl [Zofran] 8 mg PO Q8H PRN 08/06/20 01/16/21 History prochlorperazine maleate 10 mg PO Q8H PRN 08/06/20 01/16/21 History [Compazine] tramadol 50 mg PO Q4H PRN 08/06/20 01/16/21 History vbczxlss-xvm-hsfji-vit K-lycop 1 tab PO QAM 01/16/21 01/16/21 History [One-A-Day Men's 50 Plus] Past Med/Surg History Medical History (Updated 01/16/21 @ 14:42 by Tosha Turner PA-C) Cancer BLADDER-CHEMO [id number]/25/20 FOLLOWING WITH [facility]- GOING TO GET REPEAT CT SCAN IN FUTURE Chronic back pain LOWER BACK Chronic prostatitis DVT (deep venous thrombosis) SUMMER 2019- DECREASED ACTIVITY SECONDARY TO BACK PAIN - HAD FILTER PLACED AND RECENTLY REMOVED History of COVID-19 HLD (hyperlipidemia) Metastatic urothelial carcinoma PAF (paroxysmal atrial fibrillation) Pancytopenia due to chemotherapy Pulmonary embolism SUMMER 2019-PLACED ON ELIQUIS Surgical History (Updated 01/16/21 @ 14:34 by Tosha Turner PA-C) History of arthroscopy RIGHT KNEE History of biopsy of bladder History of colonoscopy History of embolic filter insertion History of herniorrhaphy History of tonsillectomy Family History Aunt Family history of diabetes mellitus Mother Cancer Diabetes Father Stroke Social History (Updated 01/16/21 @ 14:33 by Tosha Turner PA-C) Smoking Status: Never smoker Second Hand Exposure: Yes (FATHER SMOKED); Hx Alcohol Use: No Hx Substance Use: No Preferred Language: Bengali Communication Ability: Effective Team Leader/Research Psychologist Required: No Beliefs That Will Affect Care: None marital status: / Current Living Situation: Alone Feels Safe at Home: Yes Assistive Devices: Glasses Review of Systems Review of Systems: All systems reviewed & are unremarkable except as noted in HPI & below Physical Exam Physical Exam: Constitutional: Chronically ill-appearing, male, vitals as above, NAD, sitting up in bed, unable to speak in full sentences secondary to fatigue and ill feeling Head: Normocephalic, Atraumatic Eyes: PERRL, conjunctivae normal, anicteric sclerae ENMT: external ear and nose normal, oropharynx normal mucous membranes dry Neck: trachea midline, no thyromegaly normal visual inspection Respiratory: normal respiratory effort, lungs clear to auscultation, no wheeze, rales, rhonchi. Normal insp/exp effort, no accessory muscle use Cardiovascular: RRR, no murmur, no edema Vessels: no JVD or carotid bruit Chest: Right anterior chest wall port in place, normal inspection of chest Abdomen: Abdomen tender to palpation, no rebound, guarding rigidity, normal bowel sounds, soft Musculoskeletal: no cyanosis or clubbing, active range of motion x4 Skin: no rashes, warm and dry moderate turgor Neurologic: PERRL, EOMI, accommodation nl, no face palsy, no dysarthria CN's II-XI intact bilaterally and moves all extremities Psychiatric: A+Ox3, euthymic affect : deferred Results & Data Results & Data ([facility]) Vital Signs (Past 12 Hours) Vital Signs Temp Pulse Pulse Resp BP BP Pulse Ox 01/16/21 13:30 59 L 12 153/85 H 97 01/16/21 13:00 55 L 14 169/85 H 98 01/16/21 12:30 63 10 L 153/83 H 99 01/16/21 12:23 61 18 161/89 H 100 01/16/21 11:30 67 15 100 01/16/21 11:00 154/91 H 97 01/16/21 10:38 60 18 150/83 H 100 01/16/21 10:21 68 20 100 01/16/21 09:16 36.9 C 92 H 18 127/80 99 Diagnostic Findings Chest X-Ray 01/16/21 10:11 XR chest 1V portable CLINICAL HISTORY: weakness COMPARISON STUDY: No previous studies for comparison. FINDINGS: Lung volumes are normal. Lungs are clear. There is no pneumothorax or pleural effusion. Cardiac size is normal. Mediastinal contours are normal. There is no evidence for pulmonary edema. Right internal jugular Topxdx-v-Iljg is in place. A 2.1 cm nodular opacity projects over the left lower lung. IMPRESSION: 1. No acute cardiopulmonary findings. 2. 1 cm nodular opacity which projects over the left lower lung. This could reflect a nipple shadow or pulmonary nodule. Nonemergent PA and shallow oblique radiographs of the chest with nipple markers could be obtained. ACT 112: Negative or not required by law. Electronically signed by: Polo Smith M.D. 01/16/2021 10:39 AM Abdomen/Pelvis CT 01/16/21 10:14 CT SCAN OF THE ABDOMEN AND PELVIS WITH IV CONTRAST CLINICAL HISTORY: Lower abdominal pain. Diarrhea. Bladder cancer. COMPARISON STUDY: No priors. TECHNIQUE: Following the IV administration of 85 cc of Optiray, CT scan of the abdomen and pelvis is performed from the lung bases to the proximal femora. Images are reviewed in the axial, sagittal, and coronal planes. IV contrast was administered without complication. A dose lowering technique was utilized adhering to the principles of ALARA. CT DOSE: 418.75 mGy.cm FINDINGS: Lung bases: The heart is top normal in size and without pericardial effusion. There are coronary artery calcifications. There is a 2 cm lobular pulmonary nodules seen at the left lung base on image #7. A 0.9 cm irregular pulmonary nodules seen at the right lung base on image #43. No airspace consolidation or pleural effusion is identified. A fat-containing Bochdalek hernia is noted at the right lung base. There is bibasilar scarring/atelectasis. Liver: The contrast-enhanced liver is normal in size, contour, and attenuation. There is no intrahepatic biliary ductal dilatation. The hepatic veins and portal veins are patent. Gallbladder: A calcified gallstone measures at least 2 cm[address] no [address] evidence of acute cholecystitis. Spleen: The spleen is mildly enlarged measuring 13.7 cm in length. Pancreas: Unremarkable. Adrenal glands: Unremarkable. Kidneys: The contrast enhanced kidneys demonstrate mild cortical atrophy. There is mild to moderate left hydroureteronephrosis. No hydronephrosis is seen on the right. There is a 4 mm nonobstructing calculus in the right lower pole. The kidneys enhance symmetrically. Bilateral renal cysts measure up to 1.5 cm. Add itional subcentimeter cortical hypodensities also likely represent cysts but are too small for definitive characterization. Abdominal vasculature: The abdominal aorta is normal in course and caliber noting mild to moderate atherosclerotic calcification. Bowel: Residual enteric contrast is noted in the colon. There is no bowel obstruction. There is circumferential rectal wall thickening and perirectal inflammation. The rectosigmoid colon is encased by pelvic mass lesions. The appendix is well-visualized and normal. Peritoneum: There is trace perihepatic ascites. No intraperitoneal free air is identified. There are numerous subcentimeter peritoneal nodules (best seen on axial image #187). Lymphadenopathy: There is bulky retroperitoneal and iliac chain lymphadenopathy. A left periaortic cameron aggregate on image #142 measures 3.3 x 2.1 cm. A right iliac chain node on image #291 measures 2.3 x 2.0 cm. The enlarged retrocrural node on image #62 measures 1.7 x 1.2 cm. Pelvic viscera: The prostate gland is enlarged and markedly heterogeneous, measuring 5.4 cm transverse diameter. There is median lobe hypertrophy. The bladder is decompressed and not assessed. The bladder wall is partially thickened and there is pericystic inflammation. Hyperdense material is suggested within the bladder lumen and may represent excreted contrast versus blood products. There are large mass lesions identified in the pelvis which are located posterior to the bladder and surrounding the rectosigmoid colon. A lesion in the left posterior pelvis on image #308 measures approximately 5 x 2.5 cm. A lesion anterior to the sacrum measures approximately 5 x 3.5 cm. Skeletal structures: The skeletal structures are osteopenic. There is mild lumbosacral spondylosis. No lytic or blastic lesions are seen. IMPRESSION: 1. Findings are consistent with widespread metastatic disease. 2. The bladder is decompressed and not well evaluated. Hyperdense material within the bladder lumen may represent excreted IV contrast or possibly blood products. 3. There is significant wall thickening with surrounding inflammation involving the bladder and rectum. This may be represent treatment related radiation cystitis/proctitis. Clinical correlation will be required. 4. There are bulky mass lesions identified in the pelvis consistent with metastatic disease. These encase the rectosigmoid colon which does not appear obstructed. 5. There is bulky retroperitoneal and iliac chain lymphadenopathy. 6. There are at least 2 pulmonary nodules identified at the lung bases, likely representing metastatic disease. 7. There is evidence of peritoneal carcinomatosis. 8. There is mild to moderate left hydroureteronephrosis, likely related to pelvic mass lesions. 9. Cholelithiasis. 10. Mild splenomegaly. 11. Trace abdominal ascites. 12. Right-sided nephrolithiasis. 13. Additional findings as above. ACT 112: Positive. There are findings on this exam that require communication b etween the performing entity and the patient following Patient Test Result Information Act ([place] Act 112) guidelines. Electronically signed by: Balbir Anaya M.D. 01/16/2021 12:45 PM Medications Administered Morphine Sulfate (Morphine Sulfate 4 Mg/Ml 1 Ml Carp\Vial) 4 mg IV Q30M PRN PRN Reason: Pain Stop: 01/30/21 10:10 Last Admin: 01/16/21 13:24 Dose: 4 mg Documented by: [id number] Admin: 01/16/21 12:24 Dose: 4 mg Documented by: [id number] Admin: 01/16/21 11:26 Dose: 4 mg Documented by: [id number] Discontinued Medications Sodium Chloride (Nss 1000ml) 1,000 mls @ 999 mls/hr IV .Q1H1M OSMANI Stop: 01/16/21 11:15 Last Infusion: 01/16/21 12:01 Dose: 0 mls/hr Documented by: [id number] Admin: 01/16/21 11:00 Dose: 999 mls/hr Documented by: [id number] Potassium Chloride (K Lyndon / Wtr) 10 meq in 100 mls @ 100 mls/hr IV ONE ONE Stop: 01/16/21 12:45 Last Infusion: 01/16/21 13:27 Dose: 0 mls/hr Documented by: [id number] Admin: 01/16/21 12:27 Dose: 100 mls/hr Documented by: [id number] Ceftriaxone Sodium (Rocephin) 1,000 mg in 50 mls @ 100 mls/hr IV NOW STA Stop: 01/16/21 13:30 Last Infusion: 01/16/21 13:57 Dose: 0 mls/hr Documented by: [id number] Admin: 01/16/21 13:27 Dose: 100 mls/hr Documented by: [id number] Ioversol (Optiray 300 100ml) 85 ml IV ONCE ONE Stop: 01/16/21 12:08 Last Admin: 01/16/21 12:07 Dose: 85 ml Documented by: [id number] Ondansetron HCl (Ondansetron Inj 2 Mg/Ml 2 Ml Vial) 4 mg IV NOW STA Stop: 01/16/21 10:12 Last Admin: 01/16/21 11:26 Dose: 4 mg Documented by: [id number] Potassium Chloride (Potassium Chloride 10 Meq Tabcr) 30 meq PO NOW STA Stop: 01/16/21 14:10 Last Admin: 01/16/21 14:23 Dose: 30 meq Documented by: [id number] ECG Rate (beats per minute): 63 Rhythm: normal sinus COVID-19 Results Results COVID-19 Adm Lab Results: RBC 2.91 M/uL (4.7-6.1) L 01/16/21 WBC 3.82 K/uL (4.8-10.8) L 01/16/21 Hgb 8.6 g/dL (14.0-18.0) L 01/16/21 Hct 25.6 % (42-52) L 01/16/21 Plt Count 31 K/uL (130-400) L 01/16/21 Neutrophils (%) (Auto) 59.4 % 01/16/21 Lymphocytes (%) (Auto) 22.5 % 01/16/21 Monocytes # (Auto) 0.64 K/uL (0.11-0.59) H 01/16/21 Eosinophils # (Auto) 0.01 K/uL (0-0.5) 01/16/21 Immature Granulocyte % (Auto) 1.0 % 01/16/21 Neutrophils # (Auto) 2.27 K/uL (1.4-6.5) 01/16/21 Lymphocytes # (Auto) 0.86 K/uL (1.2-3.4) L 01/16/21 Monocytes # (Auto) 0.64 K/uL (0.11-0.59) H 01/16/21 Eosinophils # (Auto) 0.01 K/uL (0-0.5) 01/16/21 Basophils # (Auto) 0.00 K/uL (0-0.2) 01/16/21 Immature Granulocyte # (Auto) 0.04 K/uL (0.00-0.02) H 01/16/21 Red Blood Cell Morphology Unremarkable 01/16/21 Na 137 mmol/L (136-145) 01/16/21 K 3.1 mmol/L (3.5-5.1) L 01/16/21 Cl 100 mmol/L (98-107) 01/16/21 CO2 27 mmol/L (21-32) 01/16/21 Anion Gap 10.0 (3-11) 01/16/21 BUN 13 mg/dl (7-18) 01/16/21 Creatinine 1.01 mg/dl (0.6-1.4) 01/16/21 BUN/Creatinine Ratio 12.8 (10-20) 01/16/21 Glucose Level 71 mg/dl (70-99) 01/16/21 Ca 9.8 mg/dl (8.5-10.1) 01/16/21 Total Bilirubin 0.5 mg/dl (0.2-1) 01/16/21 AST/SGOT 20 U/L (15-37) 01/16/21 ALT/SGPT 14 U/L (12-78) 01/16/21 Alkaline Phosphatase 73 U/L (45-117) 01/16/21 Total Protein 7.5 gm/dl (6.4-8.2) 01/16/21 Albumin 3.3 gm/dl (3.4-5.0) L 01/16/21 Globulin 4.2 gm/dl (2.5-4.0) H 01/16/21 Albumin/Globulin Ratio 0.8 (0.9-2) L 01/16/21 Troponin I < 0.015 ng/ml (0-0.045) 01/16/21 PTT 25.8 Seconds (21.0-31.0) 01/16/21 INR 1.1 (0.9-1.1) 01/16/21 COVID-19 PCR POSITIVE (Negative) A* 01/16/21 Chest X-Ray 01/16/21 Code Status & VTE Plan Code Status DNR/DNI VTE Prophylaxis Plan VTE Prophylaxis will be ordered: Yes Reason for no VTE drug order: Contraindicated Supervising Physician Co-Signing Physician Notes Patient is a 67-year-old male with history of metastatic bladder cancer, paroxysmal atrial fibrillation, chronic prostatitis, recent COVID-19 infection and other medical problems presents with history of generalized, constant a bdominal pain associated with decreased oral intake, weight loss and diarrhea since 1 month duration. Patient has significant generalized weakness. He follows with [facility] oncology for metastatic bladder cancer treatment. He recently completed a course of antibiotic for subcutaneous skin infection. C. difficile was negative while in ED. Please review HPI for complete details of presentation. Patient prefers to be DNI DNR. He wants to continue chemotherapy once he recovers. Pancytopenia, hypokalemia noted on blood work. CT abdomen consistent with widespread metastatic disease, findings suggestive of cystitis, proctitis. Also noted bulky mass in pelvis consistent with metastatic disease which encases the rectosigmoid colon. Also showed retroperitoneal lymphadenopathy, findings suggestive of peritoneal carcinomatosis. Noted mild to moderate left hydroureteronephrosis related to pelvic mass which is not noted on CT from August. Trace ascites, cholelithiasis, mild splenomegaly noted. on exam patient is chronically appearing, no apparent distress, normocephalic atraumatic, lungs are clear to auscultation, normal breath sounds, S1-S2, no murmur, trace pedal edema, abdomen soft, generalized tenderness present, no guarding or rigidity, normal bowel sounds, alert, awake, oriented, grossly no focal deficits. Patient is admitted for management of deconditioning from angel rbidities, diarrhea, electrolyte abnormality, significant abdominal pain from metastatic disease. Stool for C. difficile is negative. Will obtain stool culture. Will give gentle IV fluids, consult dietitian. Will empirically start on Rocephin for possible cystitis. Consider abdominal ultrasound to assess ascites and if sufficient enough to get abdominal paracentesis, will check to rule out SBP. Replace electrolytes. Cultures obtained. Pain controlled. Consulted palliative care to address goals of care. Severe protein calorie malnutrition secondary to decreased oral intake. Pancytopenia, monitor CBC daily. I personally reviewed the record. Patient is interviewed and examined at bedside. Patient's care is coordinated with Tosha Turner PA-C. Please refer to the documentation above for details of patient's presentation and for discussion of other issues.
[2021-01-16] MEDS ORDERED: ACETAMINOPHEN 325 MG TAB PO PRN (20:15)
[2021-01-16] MEDS ORDERED: traMADol HCL 50 MG TABLET PO PRN (20:15)
[2021-01-16] MEDS: NSS + 20MEQ KCL 20 MEQ/1,000 ML BAG IV SCH (20:52)
[2021-01-16] MEDS: DIGOXIN 0.25 MG TAB PO SCH (21:06)
[2021-01-16] MEDS: LACTOBACILLUS ACIDOPHILUS 1 GM PACK PO SCH (21:06)
[2021-01-17] MEDS: MoRPHine SULFATE 2 MG/ML CARP IV PRN ×5 (04:31→21:12)
--- NOTE | 2021-01-17 06:13 | Electrocardiogram Report ---
Test Reason : Blood Pressure : / mmHG Vent. Rate : 063 BPM Atrial Rate : 063 BPM P-R Int : 174 ms QRS Dur : 098 ms QT Int : 396 ms P-R-T Axes : 085 -04 046 degrees QTc Int : 405 ms Poor data quality, interpretation may be adversely affected Normal sinus rhythm Normal ECG No previous ECGs available Confirmed by Luis Alexander ([id number]) on 01/17/2021 6:13:04 AM Referred By: REFERRED SELF Confirmed By:Luis Alexander
[2021-01-17] MEDS: NSS + 20MEQ KCL 20 MEQ/1,000 ML BAG IV SCH (06:17)
[2021-01-17 06:42] LABS: Hematocrit (blood only) 23.3 % (42-52); Hemoglobin 7.7 g/dL (14.0-18.0); Mean Corpuscular Hemoglobin 29.5 pg (25-34); Mean Corpuscular Volume 89.3 fL (80-100); RDW Coefficient of Variation 16.7 % (11.5-14.5); RDW Standard Deviation 53.8 fL (36.4-46.3); Red Blood Count 2.61 M/uL (4.7-6.1); White Blood Count 2.75 K/uL (4.8-10.8)
[2021-01-17 07:02] LABS: Platelet Count 33 K/uL (130-400)
[2021-01-17 07:03] LABS: Albumin Level 2.9 gm/dl (3.4-5.0); BUN Creatinine Ratio 12.9 (10-20); Calcium 8.8 mg/dl (8.5-10.1); Creatinine Clr Calc Pharmacy 78.7 ml/min; Est GFR (African American) 101.6 ml/min; Est GFR (Non-African American) 87.6 ml/min; Magnesium 1.9 mg/dl (1.8-2.4); Potassium 3.8 mmol/L (3.5-5.1)
[2021-01-17 07:06] LABS: Albumin Globulin Ratio 0.8 (0.9-2); Bilirubin,Total 0.3 mg/dl (0.2-1); Eosinophils # (auto) 0.02 K/uL (0-0.5); Eosinophils % (auto) 0.7 %; Globulin 3.6 gm/dl (2.5-4.0); Immature Granulocytes # (auto) 0.03 K/uL (0.00-0.02); Immature Granulocytes % (auto) 1.1 %; Lymphocytes # (auto) 0.52 K/uL (1.2-3.4); Lymphocytes % (auto) 18.9 %; Monocytes # (auto) 0.47 K/uL (0.11-0.59); Monocytes % (auto) 17.1 %; Neutrophils # (auto) 1.71 K/uL (1.4-6.5); Neutrophils % (auto) 62.2 %; Ovalocytes 1+; Total Protein 6.5 gm/dl (6.4-8.2)
--- NOTE | 2021-01-17 07:17 | Ultrasound Report ---
ULTRASOUND OF THE ABDOMEN ASCITES CHECK CLINICAL HISTORY: Lower abdominal pain. Abdominal ascites. COMPARISON STUDY: Abdominal CT dated 01/16/2021. FINDINGS: Real-time grayscale sonography of all 4 quadrants of the abdomen is performed to assess for abdominal ascites. No abdominal ascites is identified. IMPRESSION: No abdominal ascites is identified. Electronically signed by: Balbir Anaya M.D. 01/17/2021 7:16 AM
--- NOTE | 2021-01-17 08:38 | Urology Consultation ---
Date of Consultation January 17, 2021 Assessment & Plan (1) Metastatic urothelial carcinoma: (2) Bladder cancer: 70 year old male with metastatic bladder cancer admitted for abdominal pain, weight loss, weakness, and anemia; recent history of COVID-19 infection. - Hospital course, imaging, lab work and past medical and surgical history reviewed - Case and imaging reviewed with Dr. Rios, supervisor aluminum fabrication urologist - CTAP demonstrates widespread metastatic disease, mild to moderate left hydro, likely related to pelvic mass lesions - Afebrile, labs reviewed - Creatinine is within normal limits - No acute intervention at this time - Recommend oncology management and continue supportive care - Recommend follow-up with his regular urologist for ongoing management Thank you for allowing us to participate in the acute care of Mr. Quiñonez. Please reconsult us with additional questions, concerns or changes in patient status. History of Present Illness Reason for Consultation: mild to mod L hydro 2/2 to pelvic mass lesions Requesting Physician: Dr. Hastings Attending Physician: Etta Grayson MD History of Present Illness 70 year old male with past medical history of metastatic bladder cancer, chronic prostatitis, PAF, hyperlipidemia, pancytopenia secondary to chemotherapy, DVT, pulmonary embolism, and recent COVID-19 infection admitted for abdominal pain, weight loss, weakness, anemia. Patient presented to [facility] ED on 01/16/21 with c/o abdominal pain, weight loss, weakness and diarrhea x 1 month. He has known bladder cancer, following with [facility] oncology. He was prompted by his oncologist to come to ED for further evaluation. Of note, he was hospitalized at [facility] 12/25-12/28 secondary to concern for sepsis, tested positive for COVID-19 at that time and has since recovered. COVID testing was positive in the ER. CT A/P concerning for widespread metastatic disease. Significant wall thickening with surrounding inflammation involving the bladder and rectum; bulky mass lesions in the pelvis, bulky retroperitoneal and iliac chain lymphadenopathy, at least 2 pulmonary nodules identified at the lung bases, likely representing metastatic disease; peritoneal carcinomatosis, and mild to moderate left hydronephrosis likely related to pelvic mass lesions. Stool was negative for C. diff. Lab work revealed WBC 3.82, Hgb 8.6, Creatinine 1.01, K 3.1, lactate 1.0, and low platelet count. UA >30 WBC, 0-4 RBC, >30 epithelials. Urine and blood cultures collected. He was started on IV Ceftriaxone in the ED. He was admitted by hospital medicine. Our service is consulted for mild to mod L hydronephrosis secondary to pelvic mass lesions. Per admitting notes, his initial diagnosis of bladder cancer in 06/2018. He is s/p TURBT, local BCG treatment x 6 - completed October 2018, Cisplatin and gemcitabine q 21 days for 4 cycles. As of 09/12/2020 he receive 4 cycles of chemotherapy, has been off chemotherapy for several weeks. Chart review: Afebrile Creatinine 0.88 WBC 2.75 Hgb 7.7 K 3.8 UC&S pending BCx pending On IV Ceftriaxone Patient seen and examined at bedside this AM. He is resting in bed, arouses easily to speech. He reports generalized pain in abdomen. No flank pain. He is voiding spontaneously. Denies dysuria or recent hematuria. No nausea or vomiting. No fever or chills. He had his TURBT done at [facility] in [place] per his report. He is not able to recall his urologist's name. Difficult historian. He answers questions with short answers and does not offer additional information. No additional concerns today. Allergies Allergy/AdvReac Type Severity Reaction Status Date / Time Fruwjdb-Mmi-Spo Reductase AdvReac Unknown SWELLING Verified 01/16/21 10:13 Inhibitor LEGS,MEMORY ISSUES Home Medications Medication Instructions Recorded Confirmed Type digoxin 250 mcg PO HS 08/06/20 01/16/21 History ondansetron HCl [Zofran] 8 mg PO Q8H PRN 08/06/20 01/16/21 History prochlorperazine maleate 10 mg PO Q8H PRN 08/06/20 01/16/21 History [Compazine] tramadol 50 mg PO Q4H PRN 08/06/20 01/16/21 History kxlqlumn-ksf-idcaz-vit K-lycop 1 tab PO QAM 01/16/21 01/16/21 History [One-A-Day Men's 50 Plus] Patient History Medical History Cancer BLADDER-CHEMO [id number]/25/20 FOLLOWING WITH [facility]- GOING TO GET REPEAT CT SCAN IN FUTURE Chronic back pain LOWER BACK Chronic prostatitis DVT (deep venous thrombosis) SUMMER 2019- DECREASED ACTIVITY SECONDARY TO BACK PAIN - HAD FILTER PLACED AND RECENTLY REMOVED History of COVID-19 HLD (hyperlipidemia) Metastatic urothelial carcinoma PAF (paroxysmal atrial fibrillation) Pancytopenia due to chemotherapy Pulmonary embolism SUMMER 2019-PLACED ON ELIQUIS Surgical History History of arthroscopy RIGHT KNEE History of biopsy of bladder History of colonoscopy History of embolic filter insertion History of herniorrhaphy History of tonsillectomy Family History Aunt Family history of diabetes mellitus Mother Cancer Diabetes Father Stroke Social History Smoking Status: Never smoker Second Hand Exposure: No; Do You Dip or Chew Tobacco: No; Tobacco Cessation Education Requested by Patient: No Hx Alcohol Use: No Hx Substance Use: No Preferred Language: Slovak Communication Ability: Effective 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 currently lives home alone Other Information That Helps Us Care for You: No Feels Safe at Home: Yes Safety Concerns: Feels Safe At This Time Assistive Devices: Walker Assistive Devices Comment: Pt. uses walker at home Review of Systems Constitutional: as per Subjective / HPI Eyes: no problem reported Ear, Nose, Mouth, Throat: no problem reported Respiratory: no problem reported Cardiovascular: no problem reported Gastrointestinal: as per Subjective / HPI Genitourinary: + as per Subjective / HPI Musculoskeletal: no problem reported Integumentary: no problem reported Neurologic: no problem reported Psychiatric: no problem reported Endocrine: no problem reported Physical Exam Constitutional: Chronically ill appearing, no acute distress, vitals as above Respiratory: normal respiratory effort; no respiratory distress, no labored breathing and does not use accessory muscles Cardiovascular: Extremities: no pedal edema Gastrointestinal (Abdomen): Percussion/Palpation: + abdomen tender (generalized); no guarding Musculoskeletal: Head/Neck/Chest: normocephalic and head atraumatic Skin: no rashes, warm and dry Psychiatric: Orientation: alert and oriented x 3 Affect: + flat affect Genitourinary: no CVA tenderness Results & Data ([facility]) Vital Signs (Past 12 Hours) Vital Signs Temp Pulse Pulse Resp BP Pulse Ox 01/17/21 07:26 36.9 C 57 L 18 163/82 H 97 01/17/21 07:20 61 01/17/21 03:20 37.1 C 78 20 132/68 98 01/16/21 23:22 36.3 C L 54 L 18 146/74 H 99 01/16/21 22:20 54 L 01/16/21 21:06 56 L 01/16/21 21:05 56 L 145/73 H PG Care Time/CCT Total # of Minutes Spent Total Time Spent with Patient: Total time spent is greater than 50% in coordination of care (as documented) at patient's floor/unit and/or counseling patient: Coding Level of Care Code 92336 Initial Inpt Care Lvl 3 Diagnoses Metastatic urothelial carcinoma C79.10 Bladder cancer C67.9 Bladder location: unspecified site (1) Bladder cancer Bladder location: unspecified site Qualified Code(s): C67.9 - Malignant neoplasm of bladder, unspecified
[2021-01-17] MEDS: CEROVITE ADV FORMULA TAB PO SCH (08:51)
[2021-01-17] MEDS: LACTOBACILLUS ACIDOPHILUS 1 GM PACK PO SCH ×3 (08:51→17:40)
[2021-01-17] MEDS: cefTRIAXone SODIUM 1,000 MG in DEXTROSE 5% AD-VAN 50 ML IV SCH (13:47)
--- NOTE | 2021-01-17 14:57 | Palliative Care Consultation ---
Date of Consultation January 17, 2021 Assessment & Plan (1) Diffuse abdominal pain: Relieved with IV morphine. He tells me that the medications wears off quickly though it was over five hours since his last dose. We talked about using oral opioid which would provide more sustained coverage but he would prefer to continue with the IV medication at this time. He tells me that the pain is constant, radiating across his abdomen. He denies constipation or nausea. (2) Palliative care encounter: I talked to him about the role of palliative care in helping to clarify goals for his care and support to meet those goals. He was uncomfortable discussing this and tells me that he feels that he is doing ok at home. He did admit that the cancer has progressed despite treatment. I suggested that sometimes a more comfort oriented approach can provide better quality of life but he does not want to discuss that at this time. He did give me permission to speak with his daughter, Gerri, in [place] at [phone]. She is aware of the most recent CT results and says that they have noticed a tremendous physical decline in [place] over the last two months. She is worried about him being able to be at home. She tells me that he does have a visiting nurse who has been coming in once a week but no regular caregivers. She and her sister, Yudi, live in [place] and have been very worried about him. She tells me that with his last hospitalization, he did not qualify for SNF or rehab on discharge. I reviewed PT evaluation from today and told her that we will monitor his progress to see if he would qualify for rehab. I did also discuss my worry that his rehab potential is quite limited and a more comfort directed approach may be a possibility. She is aware of this and has been considering this. At this time, palliative care will follow for support and symptom management. (3) Bladder cancer: Bladder location: unspecified site Qualified Code(s): C67.9 - Malignant neoplasm of bladder, unspecified (4) Peritoneal carcinomatosis: (5) History of COVID-19: (6) PAF (paroxysmal atrial fibrillation): History of Present Illness Reason for Consultation: goals of care Requesting Physician: Tosha Turner Attending Physician: Etta Grayson MD History of Present Illness 67yo gentleman with bladder cancer diagnosed in 2018. He has had BCG treatment, full course of cisplatin and gemcitabine and had been on a new chemotherapy regimen which was stopped a few weeks ago, he says, because the cancer was progressing. Yesterday, he had a CT which showed disease progression and extensive metastatic disease with mild left hydronephrosis, pulmonary nodules and peritoneal carcinomatosis with trace ascites. He unfortunately was also diagnosed with Covid 19 three weeks ago. He has had functional decline and 23 lb weight loss in the last month. He complains of pain across his abdomen which is relieved with IV morphine. His appetite is poor. He denies nausea. He lives alone and has what he describes as visiting nurses and meals on wheels. I asked him how he was managing with this arrangement and he told me "its ok". Allergies Allergy/AdvReac Type Severity Reaction Status Date / Time Qdvptib-Vgi-Oce Reductase AdvReac Unknown SWELLING Verified 01/16/21 10:13 Inhibitor LEGS,MEMORY ISSUES Home Medications Medication Instructions Recorded Confirmed Type digoxin 250 mcg PO HS 08/06/20 01/16/21 History ondansetron HCl [Zofran] 8 mg PO Q8H PRN 08/06/20 01/16/21 History prochlorperazine maleate 10 mg PO Q8H PRN 08/06/20 01/16/21 History [Compazine] tramadol 50 mg PO Q4H PRN 08/06/20 01/16/21 History kxylwtlq-mmv-gzjel-vit K-lycop 1 tab PO QAM 01/16/21 01/16/21 History [One-A-Day Men's 50 Plus] Patient History Medical History Cancer BLADDER-CHEMO [id number]/25/20 FOLLOWING WITH HEME- GOING TO GET REPEAT CT SCAN IN FUTURE Chronic back pain LOWER BACK Chronic prostatitis DVT (deep venous thrombosis) SUMMER 2019- DECREASED ACTIVITY SECONDARY TO BACK PAIN - HAD FILTER PLACED AND RECENTLY REMOVED History of COVID-19 HLD (hyperlipidemia) Metastatic urothelial carcinoma PAF (paroxysmal atrial fibrillation) Pancytopenia due to chemotherapy Pulmonary embolism SUMMER 2019-PLACED ON ELIQUIS Surgical History History of arthroscopy RIGHT KNEE History of biopsy of bladder History of colonoscopy History of embolic filter insertion History of herniorrhaphy History of tonsillectomy Family History Aunt Family history of diabetes mellitus Mother Cancer Diabetes Father Stroke Social History Smoking Status: Never smoker Second Hand Exposure: No; Do You Dip or Chew Tobacco: No; Tobacco Cessation Education Requested by Patient: No Hx Alcohol Use: No Hx Substance Use: No Preferred Language: Vincentian Communication Ability: Effective Collections Assistant Required: No Beliefs That Will Affect Care: None marital status: / Current Living Situation: Alone Current Living Situation Comment: Pt. currently lives home alone Other Information That Helps Us Care for You: No Feels Safe at Home: Yes Safety Concerns: Feels Safe At This Time Assistive Devices: Walker Assistive Devices Comment: Pt. uses walker at home Review of Systems Review of Systems: [place] Symptom Assessment Scale Pain 3/3 Dyspnea 0/3 Anxiety 2/3 Fatigue 2/3 Nausea 0/3 Anorexia 2/3 Drowsiness 1/3 Palliative Performance Score 50% Physical Exam Constitutional: + ill appearing ENMT: Mouth: + dry oral mucous membranes Respiratory: normal respiratory effort; no labored breathing Gastrointestinal (Abdomen): Percussion/Palpation: + abdomen tender Musculoskeletal: Extremities: + muscle atrophy Neurologic: awake; not confused Results & [facility] ([facility]) Vital Signs (Past 12 Hours) Vital Signs Temp Pulse Pulse Resp BP Pulse Ox 01/17/21 11:42 97.5 F L 59 L 18 157/80 H 95 01/17/21 07:26 98.4 F 57 L 18 163/82 H 97 01/17/21 07:20 61 01/17/21 03:20 98.8 F 78 20 132/68 98 PG Care Time/CCT Total # of Minutes Spent Total Time Spent with Patient: Total time spent is greater than 50% in coordination of care (as documented) at patient's floor/unit and/or counseling patient: total time spent 70 minutes with more than 50% of time spent on symptom management, family education and support, goals of care. Coding Level of Care Code 65419 Inpt Consult Level 4 Diagnoses Diffuse abdominal pain R10.84 Palliative care encounter Z51.5 Bladder cancer C67.9 Bladder location: unspecified site Peritoneal carcinomatosis C78.6 History of COVID-19 Z86.16 PAF (paroxysmal atrial fibrillation) I48.0 Time Spent (min) 70
[2021-01-17] MEDS ORDERED: LORazepam 0.5 MG/1 ML VIAL IV PRN (16:30)
[2021-01-17] MEDS: MoRPHine SULFATE 5 MG/0.25 ML UDP PO PRN (16:37)
--- NOTE | 2021-01-17 17:41 | Hospitalist Progress Note ---
Date of Service January 17, 2021 Assessment & Plan (1) Metastatic urothelial carcinoma: (2) Pancytopenia due to chemotherapy: (3) Peritoneal carcinomatosis: (4) History of COVID-19: (5) Abdominal pain: (6) Diarrhea: (7) Hypokalemia: This is a 67-year-old male who has significant past medical history of PAF, HLD, metastatic bladder CA, chronic prostatitis pancytopenia secondary to chemotherapy, history of recent COVID-19 infection presents to ED at the referral of oncology secondary to abdominal pain, weight loss and diarrhea x1 month. Patient is given IV fluids, replaced electrolytes, Vitals remained stable, encouraged for p.o. intake, dietitian consulted Continue to monitor electrolytes Will need PT OT evaluation prior to discharge Metastatic urothelial carcinoma: Initial diagnosis 06/2018 Status post TURBT local BCG treatment x6 -completed October 2018 Cisplatin and gemcitabine q. 21 days for 4 cycles As of 09/12/2020 he received 4 cycles of chemotherapy Currently has been off chemotherapy for several weeks Follows [facility] hematology/oncology Imaging today in ED CT a/p: Findings are consistent with widespread metastatic disease. There is significant wall thickening with surrounding inflammation involving the bladder and rectum. This may be represent treatment related radiation cystitis/proctitis. There are bulky mass lesions identified in the pelvis consistent with metastatic disease. These encase the rectosigmoid colon which does not appear obstructed. There is bulky retroperitoneal and iliac chain lymphadenopathy. There are at least 2 pulmonary nodules identified at the lung bases, likely representing metastatic disease. There is evidence of peritoneal carcinomatosis. 8. There is mild to moderate left hydroureteronephrosis, likely related to pelvic mass lesions. Trace abdominal ascites. Pt with clearly widespread metastatic disease of urothelial cell carcinoma with evidence of metastasis to retroperitoneal, iliac chain adenopathy, masslike lesions extending into rectosigmoid colon, pelvic mass lesions extending and compressing on left ureter and evidence of likely peritoneal carcinomatosis. Peritoneal carcinomatosis was not mentioned on prior imaging. Overall prognosis remain extremely poor Consult palliative care for further establishment of goals of care and pain management-appreciate input Abdominal pain: secondary to metastatic malignancy, continue on p.o. Roxanol, IV morphine as needed Hypokalemia replace Severe protein calorie malnutrition: Due to metastatic malignancy, dietitian consulted for nutritional supplement Very poor prognosis History paroxysmal A. fib continue digoxin pt currently in NSR Pancytopenia Follow H&H, transfusion for hemoglobin less than 7 DNR/DNI PCP: Alison DVT ppx: SCDs/Teds given thrombocytopenia Admission and Anticipated Discharge Date Admission Date: January 16, 2021 Subjective Patient reports not feeling well, could not specify specific complaint, Feels miserable, weak and tired Denies of any abdominal pain, appetite extremely poor, no nausea No fever or chills no complaint of chest pain or shortness of Review of Systems Review of Systems: All systems reviewed & are unremarkable except as noted in HPI & below Physical Exam Physical Exam: Physical exam: General: Conically ill appearing, cachectic HEENT: Anicteric sclera Heart: Regular S1-S2, Lungs: Clear to auscultate, no wheeze or rales Abdomen: Soft nontender, Extremity: No cyanosis, no deformity, Neuro: No focal neurological deficit normal speech, generalized weakness Psych: Alert awake oriented x3, flat affect Results & Data Results & Data ([facility]) Vital Signs (Past 12 Hours) Vital Signs Temp Pulse Pulse Resp BP Pulse Ox 01/17/21 15:27 37 C 62 18 154/80 H 96 01/17/21 15:20 61 01/17/21 11:42 36.4 C L 59 L 18 157/80 H 95 01/17/21 07:26 36.9 C 57 L 18 163/82 H 97 01/17/21 07:20 61
[2021-01-17] MEDS: DIGOXIN 0.25 MG TAB PO SCH (21:13)
[2021-01-18] MEDS: MoRPHine SULFATE 2 MG/ML CARP IV PRN ×3 (00:07→08:14)
[2021-01-18] MEDS: CEROVITE ADV FORMULA TAB PO SCH (08:10)
[2021-01-18] MEDS: LACTOBACILLUS ACIDOPHILUS 1 GM PACK PO SCH ×3 (08:10→16:41)
[2021-01-18] MEDS: ONDANSETRON INJ 2 MG/ML 2 ML VIAL IV PRN (08:14)
[2021-01-18] MEDS: cefTRIAXone SODIUM 1,000 MG in DEXTROSE 5% AD-VAN 50 ML IV SCH (12:35)
[2021-01-18] MEDS: MoRPHine SULFATE 5 MG/0.25 ML UDP PO PRN (12:40)
[2021-01-18] MEDS ORDERED: fentaNYL 12 MCG/HR TDSY TD SCH (15:00)
[2021-01-18] MEDS: CHECK fentaNYL PATCH PLACEMENT SCH (15:16)
--- NOTE | 2021-01-18 16:35 | Hospitalist Progress Note ---
Date of Service January 18, 2021 Assessment & Plan (1) Metastatic urothelial carcinoma: (2) Pancytopenia due to chemotherapy: (3) Peritoneal carcinomatosis: (4) History of COVID-19: (5) Abdominal pain: (6) Diarrhea: (7) Hypokalemia: Due to GI loss This is a 67-year-old male who has significant past medical history of PAF, HLD, metastatic bladder CA, chronic prostatitis pancytopenia secondary to chemotherapy, history of recent COVID-19 infection presents to ED at the referral of oncology secondary to abdominal pain, weight loss and diarrhea x1 month. Patient is given IV fluids, replaced electrolytes, Vitals remained stable, encouraged for p.o. intake, dietitian consulted Continue to monitor electrolytes Significant deconditioning noted, ordered for PT OT eval Intractable pain secondary to bone metastasis: Ordered for fentanyl patch, dose could be increased if patient pain remains uncontrolled Continue as needed narcotics for breakthrough pain Pain management will be consulted Metastatic urothelial carcinoma/peritoneal carcinomatosis Widespread metastatic disease of urothelial cell carcinoma with evidence of metastasis to retroperitoneal, iliac chain adenopathy, masslike lesions extending into rectosigmoid colon, pelvic mass lesions extending and compressing on left ureter and evidence of likely peritoneal carcinomatosis- Status post TURBT/chemotherapy Follows [facility] hematology/oncology-overall prognosis very poor CT abdomen pelvis on admission:: Findings are consistent with widespread metastatic disease. There is significant wall thickening with surrounding inflammation involving the bladder and rectum. This may be represent treatment related radiation cystitis/proctitis. There are bulky mass lesions identified in the pelvis consistent with metastatic disease. These encase the rectosigmoid colon which does not appear obstructed. There is bulky retroperitoneal and iliac chain lymphadenopathy. There are at least 2 pulmonary nodules identified at the lung bases, likely representing metastatic disease. There is evidence of peritoneal carcinomatosis. 8. There is mild to moderate left hydroureteronephrosis, likely related to pelvic mass lesions. Trace abdominal ascites. Imaging suggestive of progression of metastatic disease, with new presentation of peritoneal carcinomatosis, in spite of receiving aggressive chemo treatment Overall prognosis remain extremely poor Consult palliative care for further establishment of goals of care and pain management-appreciate input Abdominal pain: secondary to metastatic malignancy, with peritoneal carcinomatosis P.o. Roxanol, ordered by palliative care was altered for intermittent IV morphine, will change to IV Dilaudid Added fentanyl patch Will consult pain management team on Wednesday to address intractable pain secondary to malignancy Hypokalemia replace Severe protein calorie malnutrition: Due to metastatic malignancy, dietitian consulted for nutritional supplement Very poor prognosis History paroxysmal A. fib continue digoxin pt currently in NSR Pancytopenia Follow H&H, transfusion for hemoglobin less than 7 DNR/DNI PCP: Alison DVT ppx: SCDs/Teds given thrombocytopenia Disposition: To be determined, patient presents with severe deconditioning, PT OT evaluation requested Overall very poor prognosis with limited life expectancy Transition her to hospice care would be appropriate Palliative care team following Admission and Anticipated Discharge Date Admission Date: January 16, 2021 Subjective Reports of feeling the same, generalized weakness fatigue appetite remains extremely poor No fever or chills, denies of any chest pain or discomfort Realize pain is secondary to metastatic bone lesion Patient reports back pain secondary to metastatic cancer has improved, started on fentanyl patch Review of Systems Review of Systems: All systems reviewed & are unremarkable except as noted in Subjective Physical Exam Physical Exam: Physical exam: General: Conically ill appearing, cachectic HEENT: Anicteric sclera Heart: Regular S1-S2, Lungs: Clear to auscultate, no wheeze or rales Abdomen: Soft nontender, Extremity: No cyanosis, no deformity, Neuro: No focal neurological deficit normal speech, generalized weakness Psych: Alert awake oriented x3, flat affect Results & Data Results & Data ([facility]) Vital Signs (Past 12 Hours) Vital Signs Temp Pulse Pulse Resp BP Pulse Ox 01/18/21 15:32 37.1 C 64 16 137/76 97 01/18/21 11:36 36.8 C 65 18 146/80 H 95 01/18/21 07:35 36.8 C 59 L 18 165/88 H 95
[2021-01-18] MEDS: DIGOXIN 0.25 MG TAB PO SCH (20:46)
[2021-01-18] MEDS: HYDROmorphone INJ 1 MG/ML SYRINGE IV PRN (21:00)
[2021-01-19] MEDS: CHECK fentaNYL PATCH PLACEMENT SCH ×4 (00:05→23:13)
[2021-01-19 05:49] LABS: Mean Corpuscular Hgb Conc 33.3 g/dL (32-36)
[2021-01-19 06:01] LABS: Mean Corpuscular Hemoglobin 29.9 pg (25-34); Mean Corpuscular Volume 89.6 fL (80-100); RDW Coefficient of Variation 16.6 % (11.5-14.5); RDW Standard Deviation 53.9 fL (36.4-46.3); Red Blood Count 2.68 M/uL (4.7-6.1); White Blood Count 2.97 K/uL (4.8-10.8)
[2021-01-19 06:07] LABS: BUN Creatinine Ratio 9.8 (10-20); Calcium 9.1 mg/dl (8.5-10.1); Creatinine Clr Calc Pharmacy 81.3 ml/min; Est GFR (African American) 99.3 ml/min; Est GFR (Non-African American) 85.7 ml/min; Magnesium 1.9 mg/dl (1.8-2.4); Phosphorus 3.3 mg/dl (2.5-4.9); Potassium 3.8 mmol/L (3.5-5.1)
[2021-01-19 06:09] LABS: Platelet Count 34 K/uL (130-400)
[2021-01-19] MEDS: ONDANSETRON INJ 2 MG/ML 2 ML VIAL IV PRN (07:28)
[2021-01-19] MEDS: HYDROmorphone INJ 1 MG/ML SYRINGE IV PRN ×4 (07:28→19:55)
[2021-01-19] MEDS: LACTOBACILLUS ACIDOPHILUS 1 GM PACK PO SCH ×3 (09:36→17:27)
[2021-01-19] MEDS: CEROVITE ADV FORMULA TAB PO SCH (09:36)
[2021-01-19] MEDS ORDERED: POLYETHYLENE (MIRALAX) 17 GM PACK PO PRN (11:01)
[2021-01-19] MEDS: cefTRIAXone SODIUM 1,000 MG in DEXTROSE 5% AD-VAN 50 ML IV SCH (12:15)
--- NOTE | 2021-01-19 15:59 | Hospitalist Progress Note ---
Date of Service January 19, 2021 Assessment & Plan (1) Metastatic urothelial carcinoma: (2) Pancytopenia due to chemotherapy: (3) Peritoneal carcinomatosis: (4) History of COVID-19: (5) Abdominal pain: (6) Diarrhea: (7) Hypokalemia: Corrected: Due to GI loss This is a 67-year-old male who has significant past medical history of PAF, HLD, metastatic bladder CA, chronic prostatitis pancytopenia secondary to chemotherapy, history of recent COVID-19 infection presents to ED at the [facility] secondary to abdominal pain, weight loss and diarrhea x1 month. Patient is given IV fluids, replaced electrolytes, Vitals remained stable, encouraged for p.o. intake, dietitian consulted Continue to monitor electrolytes Significant deconditioning noted, ordered for PT OT eval Intractable pain secondary to bone metastasis: Ordered for fentanyl patch 12 MCG, dose could be increased if patient pain remains uncontrolled Continue as needed narcotics for breakthrough pain Pain management consulted Metastatic urothelial carcinoma/peritoneal carcinomatosis Widespread metastatic disease of urothelial cell carcinoma with evidence of metastasis to retroperitoneal, iliac chain adenopathy, masslike lesions extending into rectosigmoid colon, pelvic mass lesions extending and compressing on left ureter and evidence of likely peritoneal carcinomatosis- Status post TURBT/chemotherapy Follows [facility] hematology/oncology-overall prognosis very poor CT abdomen pelvis on admission:: Findings are consistent with widespread metastatic disease. There is significant wall thickening with surrounding inflammation involving the bladder and rectum. This may be represent treatment related radiation cystitis/proctitis. There are bulky mass lesions identified in the pelvis consistent with metastatic disease. These encase the rectosigmoid colon which does not appear obstructed. There is bulky retroperitoneal and iliac chain lymphadenopathy. There are at least 2 pulmonary nodules identified at the lung bases, likely representing metastatic disease. There is evidence of peritoneal carcinomatosis. 8. There is mild to moderate left hydroureteronephrosis, likely related to pelvic mass lesions. Trace abdominal ascites. Imaging suggestive of progression of metastatic disease, with new presentation of peritoneal carcinomatosis, in spite of receiving aggressive chemo treatment Overall prognosis remain extremely poor Consult palliative care for further establishment of goals of care and pain management-appreciate input Abdominal pain: secondary to metastatic malignancy, with peritoneal carcinomatosis P.o. Roxanol, ordered by palliative care was altered for intermittent IV morphine, will change to IV Dilaudid Added fentanyl patch Will consult pain management team to address intractable pain secondary to malignancy Hypokalemia replace Severe protein calorie malnutrition: Due to metastatic malignancy, dietitian consulted for nutritional supplement Very poor prognosis History paroxysmal A. fib continue digoxin pt currently in NSR Pancytopenia Follow H&H, transfusion for hemoglobin less than 7 DNR/DNI PCP: Alison DVT ppx: SCDs/Teds given thrombocytopenia Disposition: To be determined, patient presents with severe deconditioning, PT OT evaluation requested Overall very poor prognosis with limited life expectancy Transition her to hospice care would be appropriate Palliative care team following Admission and Anticipated Discharge Date Admission Date: January 16, 2021 Subjective More tired and weak today, pain is little better controlled after started on fentanyl patch No fever or chills, no complaint of nausea vomiting or abdominal pain No diarrhea, appetite remains very poor Physical Exam Physical Exam: Physical exam: General: Conically ill appearing, cachectic HEENT: Anicteric sclera Heart: Regular S1-S2, Lungs: Clear to auscultate, no wheeze or rales Abdomen: Soft nontender, Extremity: No cyanosis, no deformity, Neuro: No focal neurological deficit normal speech, generalized weakness Psych: Alert awake oriented x3, flat affect Results & Data Results & Data ([facility]) Vital Signs (Past 12 Hours) Vital Signs Temp Pulse Pulse Resp BP BP Pulse Ox 01/19/21 14:59 36.9 C 64 16 132/73 95 01/19/21 09:41 59 L 18 143/79 H 95 01/19/21 07:32 36.7 C 59 L 18 164/87 H 95
[2021-01-19] MEDS: DIGOXIN 0.25 MG TAB PO SCH (20:04)
[2021-01-20] MEDS: HYDROmorphone INJ 1 MG/ML SYRINGE IV PRN ×3 (01:55→20:39)
[2021-01-20 06:26] LABS: Hematocrit (blood only) 25.1 % (42-52); Hemoglobin 8.2 g/dL (14.0-18.0); Mean Corpuscular Hemoglobin 29.5 pg (25-34); Mean Corpuscular Hgb Conc 32.7 g/dL (32-36); Mean Corpuscular Volume 90.3 fL (80-100); Platelet Count 20 K/uL (130-400); Platelet Estimate SIGNIFIC DECREASED (Normal); RDW Coefficient of Variation 16.8 % (11.5-14.5); RDW Standard Deviation 55.7 fL (36.4-46.3); Red Blood Count 2.78 M/uL (4.7-6.1); White Blood Count 2.81 K/uL (4.8-10.8)
[2021-01-20 06:46] LABS: BUN Creatinine Ratio 11.7 (10-20); Calcium 9.2 mg/dl (8.5-10.1); Creatinine Clr Calc Pharmacy 72.5 ml/min; Est GFR (African American) 86.5 ml/min; Est GFR (Non-African American) 74.6 ml/min; Magnesium 2.2 mg/dl (1.8-2.4); Phosphorus 3.6 mg/dl (2.5-4.9); Potassium 4.2 mmol/L (3.5-5.1)
[2021-01-20] MEDS: LACTOBACILLUS ACIDOPHILUS 1 GM PACK PO SCH ×3 (08:27→18:32)
[2021-01-20] MEDS: CEROVITE ADV FORMULA TAB PO SCH (08:27)
[2021-01-20] MEDS: CHECK fentaNYL PATCH PLACEMENT SCH ×2 (08:28→15:11)
[2021-01-20] MEDS ORDERED: MAGNESIUM CITRATE 296 ML/BTL PO ONE (09:15)
[2021-01-20] MEDS: fentaNYL 25 MCG/HR TDSY TD SCH (09:44)
[2021-01-20] MEDS: DULoxetine HCL 30 MG CAP PO SCH (09:44)
[2021-01-20] MEDS: DOCUSATE SODIUM 100 MG CAP PO SCH ×2 (09:44→20:19)
[2021-01-20] MEDS: ONDANSETRON INJ 2 MG/ML 2 ML VIAL IV PRN (10:28)
[2021-01-20] MEDS: HEPARIN 100 UNIT/ML 5ML FLUSH FLUSH PRN ×2 (10:30→13:47)
--- NOTE | 2021-01-20 11:57 | Pain Management Consultation ---
Date of Consultation January 20, 2021 Assessment & Plan (1) Cancer related pain: 1. Patient is not a candidate for interventional pain management procedures due to thrombocytopenia with platelets of 20,000 on this morning's labs. 2. Recommend increasing the patient's fentanyl to 25 mcg every 72 hours and utilizing Roxanol every 4-6 hours as needed as previously prescribed. Discussed with nursing utilizing oral Roxanol prior to consideration of IV morphine or hydromorphone. Orders are written. 3. Recommend addition of Cymbalta 30 mg p.o. every morning to further augment descending pain regulatory pathways. Orders are written. 4. Recommend addition of Colace, magnesium citrate to encourage bowel movement today. Should this fail orders for Relistor written on a as needed basis. 5. Thank you very much for this consultation we will follow up tomorrow to confirm efficacy of above regimen. (2) Metastatic urothelial carcinoma: (3) Peritoneal carcinomatosis: (4) Pancytopenia due to chemotherapy: (5) Diffuse abdominal pain: History of Present Illness Reason for Consultation: Cancer related pain Attending Physician: Etta Grayson MD History of Present Illness 70-year-old male with history of widespread metastatic bladder cancer with bulky tumor in the pelvis and retroperitoneal lymphadenopathy (follows with [facility] oncology), chronic prostatitis, recent COVID-19 infection (12/25/20 per notes )wh o presented with ongoing vague diffuse constant abdominal pain rated at 6 out of 10 at rest escalating to 9-10 out of 10 with activity characterized as aching cramping intermittently sharp. In addition he notes constipation with significant amounts of flatus but no solid bowel movement for at least 2 days since initiation of his current opioid regimen. He does note that he has had decreased oral intake which may have been a contributor. He notes significant weight loss over the last month as well as generalized weakness. He states that his pain is predominantly anterior abdomen below the umbilicus without radiation. He denies any significant axial low back pain or radicular symptoms. He denies any bowel or bladder incontinence motor weakness footdrop fever or chills at this time. He admits to mild cognitive slowing with current dosing of opiates as well as moderate constipation. He states that his pain goal is 1 out of 10. He has not utilized oral Roxicodone but has utilized 6 mg of IV hydromorphone over the last 24 hours in addition to his fentanyl 12 micrograms every 72 hour patch. He has pancytopenia with platelets of 20,000 today. He denies other constitutional complaints Pain Assessment [facility] Front + [facility]: [facility] Scale: 6-Mod to Severe - Significant limitations of ADLs. Hard to do anything Pain scale - at its best (0-10): 5 Pain scale - at its worst (0-10): 10 Allergies Allergy/AdvReac Type Severity Reaction Status Date / Time Halyezx-Lme-Xiz Reductase AdvReac Intermediate SWELLING Verified 01/20/21 08:56 Inhibitor LEGS,MEMORY ISSUES Home Medications Medication Instructions Recorded Confirmed Type digoxin 250 mcg PO HS 08/06/20 01/16/21 History ondansetron HCl [Zofran] 8 mg PO Q8H PRN 08/06/20 01/16/21 History prochlorperazine maleate 10 mg PO Q8H PRN 08/06/20 01/16/21 History [Compazine] tramadol 50 mg PO Q4H PRN 08/06/20 01/16/21 History auaqjhan-tgs-kdktc-vit K-lycop 1 tab PO QAM 01/16/21 01/16/21 History [One-A-Day Men's 50 Plus] Pain History Pain Intensity Pain scale - at its best (0-10): 5 Pain scale - at its worst (0-10): 10 Patient History Medical History Cancer BLADDER-CHEMO ALIMYMEKW63/25/20 FOLLOWING WITH [facility]- GOING TO GET REPEAT CT SCAN IN FUTURE Chronic back pain LOWER BACK Chronic prostatitis DVT (deep venous thrombosis) SUMMER 2019- DECREASED ACTIVITY SECONDARY TO BACK PAIN - HAD FILTER PLACED AND RECENTLY REMOVED History of COVID-19 HLD (hyperlipidemia) Metastatic urothelial carcinoma PAF (paroxysmal atrial fibrillation) Pancytopenia due to chemotherapy Pulmonary embolism SUMMER 2019-PLACED ON ELIQUIS Surgical History History of arthroscopy RIGHT KNEE History of biopsy of bladder History of colonoscopy History of embolic filter insertion History of herniorrhaphy History of tonsillectomy Family History Aunt Family history of diabetes mellitus Mother Cancer Diabetes Father Stroke Social History Smoking Status: Never smoker Second Hand Exposure: No; Do You Dip or Chew Tobacco: No; Tobacco Cessation Education Requested by Patient: No Hx Alcohol Use: No Hx Substance Use: No Preferred Language: Amharic Communication Ability: Effective Pot Firer Required: No Beliefs That Will Affect Care: None marital status: / Current Living Situation: Alone Current Living Situation Comment: Pt. currently lives home alone Other Information That Helps Us Care for You: No Feels Safe at Home: Yes Safety Concerns: Feels Safe At This Time Assistive Devices: Glasses and Walker Assistive Devices Comment: Pt. uses walker at home Physical Exam Physical Exam: Constitutional: Thin and slightly deconditioned. Psych: Awake, alert, and oriented 3 with normal affect and mood. Recent memory appears grossly intact. Cooperative on examination Eyes: Pupils are equally round and reactive to light with normal size pupils, eyelids appear normal Ear, nose, mouth, and throat: Moist nasal and oral membranes, lips and tongues appear normal, no external ear abnormalities are noted Neck: The trachea is midline without deviation and no thyromegaly is noted Respiratory: Normal respiratory effort without distress, no audible wheezes or rhonchi CV: Normal S1 and S2, warm distal extremities Chest: Deferred GI/abdomen: Mild tenderness below the umbilicus noted. No rebound or guarding. Positive bowel sounds noted. Moderate distention. Musculoskeletal: Head is normocephalic and atraumatic, gait not observed Cervical: Lordotic curve: Normal Range of motion is normal with extension, flexion, side-bending, rotation Strength: Strength is grossly equal bilaterally with 5 out of 5 strength in all planes Thoracic: Kyphotic curve: Normal Range of motion is normal with extension, flexion, side-bending, rotation Tenderness: Nontender over the axial midline Myofascial spasm: No appreciable spasm. No discrete trigger points noted Lumbar: Lordotic curve: Slight loss of lumbar lordosis Range of motion is normal with extension, flexion, side-bending, rotation Tenderness: Nontender over the axial midline Strength: Strength is grossly equal bilaterally with 5 out of 5 strength in all planes Myofascial spasm: No appreciable spasm. No discrete trigger points noted Greater trochanters: Nontender bilaterally Sacroiliac joints: Nontender bilaterally Skin: No rashes, lesions, ulcers, or induration noted Neuro: No nystagmus noted, the tongue is midline, the patient is able to rotate their head bilaterally : Deferred Results ([facility]) Diagnostic Review CT: reports reviewed CT Findings: 01/16/21 CT SCAN OF THE ABDOMEN AND PELVIS WITH IV CONTRAST CLINICAL HISTORY: Lower abdominal pain. Diarrhea. Bladder cancer. COMPARISON STUDY: No priors. TECHNIQUE: Following the IV administration of 85 cc of Optiray, CT scan of the abdomen and pelvis is performed from the lung bases to the proximal femora. Images are reviewed in the axial, sagittal, and coronal planes. IV contrast was administered without complication. A dose lowering technique was utilized adhering to the principles of ALARA. CT DOSE: 418.75 mGy.cm FINDINGS: Lung bases: The heart is top normal in size and without pericardial effusion. There are coronary artery calcifications. There is a 2 cm lobular pulmonary nodules seen at the left lung base on image #7. A 0.9 cm irregular pulmonary nodules seen at the right lung base on image #43. No airspace consolidation or pleural effusion is identified. A fat-containing Bochdalek hernia is noted at the right lung base. There is bibasilar scarring/atelectasis. Liver: The contrast-enhanced liver is normal in size, contour, and attenuation. There is no intrahepatic biliary ductal dilatation. The hepatic veins and portal veins are patent. Gallbladder: A calcified gallstone measures at least [address] evidence of acute cholecystitis. Spleen: The spleen is mildly enlarged measuring 13.7 cm in length. Pancreas: Unremarkable. Adrenal glands: Unremarkable. Kidneys: The contrast enhanced kidneys demonstrate mild cortical atrophy. There is mild to moderate left hydroureteronephrosis. No hydronephrosis is seen on the right. There is a 4 mm nonobstructing calculus in the right lower pole. The kidneys enhance symmetrically. Bilateral renal cysts measure up to 1.5 cm. Additional subcentimeter cortical hypodensities also likely represent cysts but are too small for definitive characterization. Abdominal vasculature: The abdominal aorta is normal in course and caliber noting mild to moderate atherosclerotic calcification. Bowel: Residual enteric contrast is noted in the colon. There is no bowel obstruction. There is circumferential rectal wall thickening and perirectal inflammation. The rectosigmoid colon is encased by pelvic mass lesions. The appendix is well-visualized and normal. Peritoneum: There is trace perihepatic ascites. No intraperitoneal free air is identified. There are numerous subcentimeter peritoneal nodules (best seen on axial image #187). Lymphadenopathy: There is bulky retroperitoneal and iliac chain lymphadenopathy. A left periaortic cameron aggregate on image #142 measures 3.3 x 2.1 cm. A right iliac chain node on image #291 measures 2.3 x 2.0 cm. The enlarged retrocrural node on image #62 measures 1.7 x 1.2 cm. Pelvic viscera: The prostate gland is enlarged and markedly heterogeneous, measuring 5.4 cm transverse diameter. There is median lobe hypertrophy. The bladder is decompressed and not assessed. The bladder wall is partially thickened and there is pericystic inflammation. Hyperdense material is suggested within the bladder lumen and may represent excreted contrast versus blood products. There are large mass lesions identified in the pelvis which are located posterior to the bladder and surrounding the rectosigmoid colon. A lesion in the left posterior pelvis on image #308 measures approximately 5 x 2.5 cm. A lesion anterior to the sacrum measures approximately 5 x 3.5 cm. Skeletal structures: The skeletal structures are osteopenic. There is mild lumbosacral spondylosis. No lytic or blastic lesions are seen. IMPRESSION: 1. Findings are consistent with widespread metastatic disease. 2. The bladder is decompressed and not well evaluated. Hyperdense material within the bladder lumen may represent excreted IV contrast or possibly blood products. 3. There is significant wall thickening with surrounding inflammation involving the bladder and rectum. This may be represent treatment related radiation cystitis/proctitis. Clinical correlation will be required. 4. There are bulky mass lesions identified in the pelvis consistent with metastatic disease. These encase the rectosigmoid colon which does not appear obstructed. 5. There is bulky retroperitoneal and iliac chain lymphadenopathy. 6. There are at least 2 pulmonary nodules identified at the lung bases, likely representing metastatic disease. 7. There is evidence of peritoneal carcinomatosis. 8. There is mild to moderate left hydroureteronephrosis, likely related to pelvic mass lesions. 9. Cholelithiasis. 10. Mild splenomegaly. 11. Trace abdominal ascites. 12. Right-sided nephrolithiasis. 13. Additional findings as above. Other Findings: 01/16/21 ULTRASOUND OF THE ABDOMEN ASCITES CHECK CLINICAL HISTORY: Lower abdominal pain. Abdominal ascites. COMPARISON STUDY: Abdominal CT dated 01/16/2021. FINDINGS: Real-time grayscale sonography of all 4 quadrants of the abdomen is performed to assess for abdominal ascites. No abdominal ascites is identified. IMPRESSION: No abdominal ascites is identified.
[2021-01-20] MEDS: cefTRIAXone SODIUM 1,000 MG in DEXTROSE 5% AD-VAN 50 ML IV SCH (13:11)
--- NOTE | 2021-01-20 13:30 | Palliative Care Progress Note ---
Date of Service January 20, 2021 Assessment & Plan (1) Palliative care encounter: Very weak today. He is not interested in discussion today and asked for peace and quiet. I spoke with is daughter, Awa, on the phone and updated her. We discussed opening of visitation and that perhaps it would be therapeutic for him to have more direct contact with family. Per his daughter, "he is not much of a phone person". She, her sister and Eugene's brother, Delvin, will visit for support. Palliative care will follow and respect his wishes. Admission and Anticipated Discharge Date Admission Date: January 16, 2021 Subjective Resting with eyes closed. Holding emesis bag but denies nausea at this time. Reports being nauseous earlier. Review of Systems Review of Systems: [place] Symptom Assessment Scale Pain 0/3 Dyspnea 0/3 Anxiety 2/3 Fatigue 2/3 Nausea 0/3 Palliative Performance Score 40% Physical Exam Constitutional: + ill appearing Respiratory: normal respiratory effort; no labored breathing Gastrointestinal (Abdomen): Inspection/Auscultation: abdomen not distended Musculoskeletal: Extremities: extremities normal to inspection Neurologic: awake; not confused Results & Data ([facility]) Vital Signs (Past 12 Hours) Vital Signs Temp Pulse Resp BP Pulse Ox 01/20/21 09:05 98.6 F 62 18 128/71 97 PG Care Time/CCT Total # of Minutes Spent Total Time Spent with Patient: Total time spent is greater than 50% in coordination of care (as documented) at patient's floor/unit and/or counseling patient: Coding Level of Care Code 60632 Subseq Hosp Care Lvl 2 Diagnoses Palliative care encounter Z51.5
[2021-01-20] MEDS: METHYLNALTREXONE BROMIDE 12 MG/0.6 ML VIAL SQ SCH (13:58)
--- NOTE | 2021-01-20 17:25 | Hospitalist Progress Note ---
Date of Service January 20, 2021 Assessment & Plan (1) Metastatic urothelial carcinoma: (2) Pancytopenia due to chemotherapy: (3) Peritoneal carcinomatosis: (4) History of COVID-19: (5) Abdominal pain: (6) Diarrhea: (7) Hypokalemia: Corrected: Due to GI loss This is a 67-year-old male who has significant past medical history of PAF, HLD, metastatic bladder CA, chronic prostatitis pancytopenia secondary to chemotherapy, history of recent COVID-19 infection presents to ED at the [facility] secondary to abdominal pain, weight loss and diarrhea x1 month. , encouraged for p.o. intake, dietitian consulted Significant deconditioning noted, ordered for PT OT eval Patient's overall prognosis remains extremely poor [place] care consulted, appreciate input Intractable pain secondary to bone metastasis: Ordered for fentanyl patch 12 MCG, dose could be increased if patient pain remains uncontrolled Continue as needed narcotics for breakthrough pain Pain management consulted Metastatic urothelial carcinoma/peritoneal carcinomatosis Widespread metastatic disease of urothelial cell carcinoma with evidence of metastasis to retroperitoneal, iliac chain adenopathy, masslike lesions extending into rectosigmoid colon, pelvic mass lesions extending and compressing on left ureter and evidence of likely peritoneal carcinomatosis- Status post TURBT/chemotherapy Follows [facility] hematology/oncology-overall prognosis very poor CT abdomen pelvis on admission:: Findings are consistent with widespread metastatic disease. There is significant wall thickening with surrounding inflammation involving the bladder and rectum. This may be represent treatment related radiation cystitis/proctitis. There are bulky mass lesions identified in the pelvis consistent with metastatic disease. These encase the rectosigmoid colon which does not appear obstructed. There is bulky retroperitoneal and iliac chain lymphadenopathy. There are at least 2 pulmonary nodules identified at the lung bases, likely representing metastatic disease. There is evidence of peritoneal carcinomatosis. 8. There is mild to moderate left hydroureteronephrosis, likely related to pelvic mass lesions. Trace abdominal ascites. Imaging suggestive of progression of metastatic disease, with new presentation of peritoneal carcinomatosis, in spite of receiving aggressive chemo treatment Overall prognosis remain extremely poor Consult palliative care for further establishment of goals of care and pain management-appreciate input Patient is DNR/DNI, Abdominal pain: secondary to metastatic malignancy, with peritoneal carcinomatosis P.o. Roxanol, ordered by palliative care was altered for intermittent IV morphine, will change to IV Dilaudid Added fentanyl patch Hypokalemia replace Severe protein calorie malnutrition: Due to metastatic malignancy, dietitian consulted for nutritional supplement Very poor prognosis History paroxysmal A. fib continue digoxin pt currently in NSR Pancytopenia Follow H&H, transfusion for hemoglobin less than 7 DNR/DNI PCP: Alison DVT ppx: SCDs/Teds given thrombocytopenia Disposition: To be determined, patient presents with severe deconditioning, PT OT evaluation requested Overall very poor prognosis with limited life expectancy pt is willing to go to short-term rehab later transition to hospice care if needed. Admission and Anticipated Discharge Date Admission Date: January 16, 2021 Subjective Reports abdominal hip pain improved after starting on fentanyl patch, still very tired and weak, No fever or chills, Review of Systems Review of Systems: All systems reviewed & are unremarkable except as noted in Subjective Physical Exam Physical Exam: Physical exam: General: Conically ill appearing, cachectic HEENT: Anicteric sclera Heart: Regular S1-S2, Lungs: Clear to auscultate, no wheeze or rales Abdomen: Soft nontender, Extremity: No cyanosis, no deformity, Neuro: No focal neurological deficit normal speech, generalized weakness Psych: Alert awake oriented x3, flat affect Results & Data Results & Data ([facility]) Vital Signs (Past 12 Hours) Vital Signs Temp Pulse Resp BP Pulse Ox 01/20/21 16:05 37.2 C 67 18 155/86 H 96 01/20/21 09:05 37.0 C 62 18 128/71 97
[2021-01-20] MEDS: MoRPHine SULFATE 5 MG/0.25 ML UDP PO PRN (19:32)
[2021-01-20] MEDS: DIGOXIN 0.25 MG TAB PO SCH (20:19)
[2021-01-21] MEDS: HYDROmorphone INJ 1 MG/ML SYRINGE IV PRN ×3 (00:15→22:10)
[2021-01-21] MEDS: CHECK fentaNYL PATCH PLACEMENT SCH ×4 (00:15→22:07)
[2021-01-21] MEDS: LACTOBACILLUS ACIDOPHILUS 1 GM PACK PO SCH ×3 (08:01→18:04)
[2021-01-21] MEDS: DOCUSATE SODIUM 100 MG CAP PO SCH ×2 (08:01→21:52)
[2021-01-21] MEDS: CEROVITE ADV FORMULA TAB PO SCH (08:01)
[2021-01-21] MEDS: DULoxetine HCL 30 MG CAP PO SCH (08:01)
--- NOTE | 2021-01-21 08:40 | Pain Management Progress Note ---
Date of Service January 21, 2021 Assessment & Plan (1) Cancer related pain: * Continue Fentanyl patch 25mcg/hr. * Patient does not find Roxanol effective and has a poor taste. I have switched him over to Oxycodone 10mg x 4 hours PRN pain. * Dilaudid 1mg IV is ordered if needed for breakthrough pain. He is aware that he needs to try being reliant on the oral pain medication and diminish the use of the IV Dilaudid. * Continue Cymbalta 30mg daily. * Continue bowel regimen of Colace, magnesium citrate, and Relistor. * If Oxycodone PO is not effective, consider MS IR vs oral Dilaudid. Admission and Anticipated Discharge Date Admission Date: January 16, 2021 Subjective Mr. Quiñonez is a 70 year old with metastatic bladder cancer. Primary complaint is diffuse abdominal pain. He states that his pain has improved since yesterday. He was able to sleep with better quality last night. He did receive an increase of Fentanyl patch to 25mcg/hr yesterday with moderate improvement. He took the Roxanol once yesterday and states that the taste is poor and it was not effective towards diminishing his pain. He did use the IV Dilaudid 3mg over the past 24 hours. He has had a small bowel movement yesterday. No confusion. Pain is rated 5/10 currently. Physical Exam Physical Exam: GENERAL: This is a thin and frail appearing 70 year old male. Appears fatigued. HEAD/FACE: Normocephalic and atraumatic. EYES: No drainage or conjunctival injection. ENT: Nose without bleeding or discharge. dry mucosa moist. RESPIRATORY: Patient with unlabored breathing. No signs of respiratory distress. CHEST/AXILLA: Chest movement symmetrical. No deformities noted. ABDOMEN/GI: No distension SKIN: [place], warm and dry. No rash noted. MS/EXTREMITY: No swelling, no deformities. Moving extremities appropriately. NEURO: Alert and appears oriented. Speech is fluent. Cranial Nerves are grossly intact. PSYCH: Alert, pleasant, affect is calm
[2021-01-21] MEDS: cefTRIAXone SODIUM 1,000 MG in DEXTROSE 5% AD-VAN 50 ML IV SCH (12:50)
[2021-01-21] MEDS: oxyCODONE HCL IR 5 MG TAB (IMMEDIATE RELEASE) PO PRN (16:17)
[2021-01-21] MEDS: HEPARIN 100 UNIT/ML 5ML FLUSH FLUSH PRN ×2 (16:18→22:11)
[2021-01-21] MEDS: DIGOXIN 0.25 MG TAB PO SCH (21:52)
[2021-01-22] MEDS: METHYLNALTREXONE BROMIDE 12 MG/0.6 ML VIAL SQ SCH (08:00)
[2021-01-22] MEDS: oxyCODONE HCL IR 5 MG TAB (IMMEDIATE RELEASE) PO PRN ×2 (08:02→18:14)
[2021-01-22] MEDS: CHECK fentaNYL PATCH PLACEMENT SCH ×3 (08:03→23:41)
--- NOTE | 2021-01-22 08:36 | Pain Management Progress Note ---
Date of Service January 22, 2021 Assessment & Plan (1) Cancer related pain: * Continue Fentanyl patch 25mcg/hr. * Continue Oxycodone 10mg x 4 hours PRN pain. * Dilaudid 1mg IV is ordered if needed for breakthrough pain. He is aware that he needs to try being reliant on the oral pain medication and diminish the use of the IV Dilaudid in preparation for discharge. * Continue Cymbalta 30mg daily. * Continue bowel regimen of Colace, magnesium citrate, and Relistor. * Will sign off on the patient. Please call with any questions or concerns. Admission and Anticipated Discharge Date Admission Date: January 16, 2021 Subjective Mr. Quiñonez is a 70 year old with metastatic bladder cancer. Primary complaint is diffuse abdominal pain. He states that his pain has improved since yesterday. He was able to sleep with better quality last night. He does report moderate improvement with Fentanyl patch at 25mcg/hr yesterday. The Roxanol was switched to Oxycodone 10mg which has been effective towards diminishing his pain. He did use the IV Dilaudid 3mg over the past 24 hours. He has had a regular bowel movement this morning. Pain is rated 4/10 currently. Physical Exam Physical Exam: GENERAL: This is a thin and frail appearing 70 year old male. Appears fatigued. HEAD/FACE: Normocephalic and atraumatic. EYES: No drainage or conjunctival injection. ENT: Nose without bleeding or discharge. dry mucosa moist. RESPIRATORY: Patient with unlabored breathing. No signs of respiratory distress. CHEST/AXILLA: Chest movement symmetrical. No deformities noted. ABDOMEN/GI: No distension SKIN: [place], warm and dry. No rash noted. MS/EXTREMITY: No swelling, no deformities. Moving extremities appropriately. NEURO: Alert and appears oriented. Speech is fluent. Cranial Nerves are grossly intact. PSYCH: Alert, pleasant, affect is calm
[2021-01-22] MEDS: DULoxetine HCL 30 MG CAP PO SCH (10:11)
[2021-01-22] MEDS: DOCUSATE SODIUM 100 MG CAP PO SCH ×2 (10:11→21:59)
[2021-01-22] MEDS: LACTOBACILLUS ACIDOPHILUS 1 GM PACK PO SCH ×3 (10:11→17:38)
[2021-01-22] MEDS: CEROVITE ADV FORMULA TAB PO SCH (10:12)
--- NOTE | 2021-01-22 12:40 | Hospitalist Progress Note ---
Date of Service Late entry, January 21, 2021 Assessment & Plan (1) Metastatic urothelial carcinoma: With widespread metastasis to the bones, abdomen, Discussed regarding poor prognosis with patient and patient's brother and daughter, aware of the poor prognosis Wants patient to be comfortable at rest his clinical status declines, palliative care following (2) Pancytopenia due to chemotherapy: (3) Peritoneal carcinomatosis: (4) History of COVID-19: (5) Abdominal pain: (6) Diarrhea: (7) Hypokalemia: Intractable pain secondary to bone metastasis: Ordered for fentanyl patch 12 MCG, dose could be increased if patient pain remains uncontrolled Continue as needed narcotics for breakthrough pain Pain management consulted/overall prognosis remains very poor Metastatic urothelial carcinoma/peritoneal carcinomatosis Widespread metastatic disease of urothelial cell carcinoma with evidence of metastasis to retroperitoneal, iliac chain adenopathy, masslike lesions extending into rectosigmoid colon, pelvic mass lesions extending and compressing on left ureter and evidence of likely peritoneal carcinomatosis- Status post TURBT/chemotherapy Follows [facility] hematology/oncology-overall prognosis very poor CT abdomen pelvis on admission:: Findings are consistent with widespread metastatic disease. There is significant wall thickening with surrounding inflammation involving the bladder and rectum. This may be represent treatment related radiation cystitis/proctitis. There are bulky mass lesions identified in the pelvis consistent with metastatic disease. These encase the rectosigmoid colon which does not appear obstructed. There is bulky retroperitoneal and iliac chain lymphadenopathy. There are at least 2 pulmonary nodules identified at the lung bases, likely representing metastatic disease. There is evidence of peritoneal carcinomatosis. 8. There is mild to moderate left hydroureteronephrosis, likely related to pelvic mass lesions. Trace abdominal ascites. Imaging suggestive of progression of metastatic disease, with new presentation of peritoneal carcinomatosis, in spite of receiving aggressive chemo treatment Overall prognosis remain extremely poor Consult palliative care for further establishment of goals of care and pain management-appreciate input Patient is DNR/DNI, Abdominal pain: secondary to metastatic malignancy, with peritoneal carcinomatosis P.o. Roxanol, ordered by palliative care was altered for intermittent IV morphine, will change to IV Dilaudid Added fentanyl patch Hypokalemia replace Severe protein calorie malnutrition: Due to metastatic malignancy, dietitian consulted for nutritional supplement Very poor prognosis History paroxysmal A. fib continue digoxin pt currently in NSR Pancytopenia Follow H&H, transfusion for hemoglobin less than 7 DNR/DNI PCP: Alison DVT ppx: SCDs/Teds given thrombocytopenia Disposition: To be determined, patient presents with severe deconditioning, PT OT evaluation requested Overall very poor prognosis with limited life expectancy pt is willing to go to short-term rehab later transition to hospice care if needed. waiting for placement to rehab Daughter updated over the phone Admission and Anticipated Discharge Date Admission Date: January 16, 2021 Subjective Date of service 01/21/2021 Patient reports pain minimally improved after adjustment of pain medications, By about his poor prognosis, brother present at bedside, willing for look into hospice/palliative care Physical Exam Physical Exam: Physical exam: General: Conically ill appearing, cachectic HEENT: Anicteric sclera Heart: Regular S1-S2, Lungs: Clear to auscultate, no wheeze or rales Abdomen: Soft nontender, Extremity: No cyanosis, no deformity, Neuro: No focal neurological deficit normal speech, generalized weakness Psych: Alert awake oriented x3, flat affect Results & Data Results & Data ([facility]) Vital Signs (Past 12 Hours) Vital Signs Temp Pulse Resp BP Pulse Ox 01/22/21 07:50 36.7 C 78 20 158/75 H 96
--- NOTE | 2021-01-22 19:13 | Hospitalist Progress Note ---
Date of Service January 22, 2021 Assessment & Plan (1) Metastatic urothelial carcinoma: (2) Pancytopenia due to chemotherapy: (3) Peritoneal carcinomatosis: (4) History of COVID-19: (5) Abdominal pain: (6) Diarrhea: (7) Hypokalemia: Corrected: Due to GI loss This is a 67-year-old male who has significant past medical history of PAF, HLD, metastatic bladder CA, chronic prostatitis pancytopenia secondary to chemotherapy, history of recent COVID-19 infection presents to ED at the [facility] secondary to abdominal pain, weight loss and diarrhea x1 month. , encouraged for p.o. intake, dietitian consulted Significant deconditioning noted, ordered for PT OT eval Patient's overall prognosis remains extremely poor Latifa care consulted, appreciate input Intractable pain secondary to bone metastasis: Ordered for fentanyl patch 12 MCG, dose could be increased if patient pain remains uncontrolled Continue as needed narcotics for breakthrough pain Pain management consulted Metastatic urothelial carcinoma/peritoneal carcinomatosis Widespread metastatic disease of urothelial cell carcinoma with evidence of metastasis to retroperitoneal, iliac chain adenopathy, masslike lesions extending into rectosigmoid colon, pelvic mass lesions extending and compressing on left ureter and evidence of likely peritoneal carcinomatosis- Status post TURBT/chemotherapy Follows [facility] hematology/oncology-overall prognosis very poor CT abdomen pelvis on admission:: Findings are consistent with widespread metastatic disease. There is significant wall thickening with surrounding inflammation involving the bladder and rectum. This may be represent treatment related radiation cystitis/proctitis. There are bulky mass lesions identified in the pelvis consistent with metastatic disease. These encase the rectosigmoid colon which does not appear obstructed. There is bulky retroperitoneal and iliac chain lymphadenopathy. There are at least 2 pulmonary nodules identified at the lung bases, likely representing metastatic disease. There is evidence of peritoneal carcinomatosis. 8. There is mild to moderate left hydroureteronephrosis, likely related to pelvic mass lesions. Trace abdominal ascites. Imaging suggestive of progression of metastatic disease, with new presentation of peritoneal carcinomatosis, in spite of receiving aggressive chemo treatment Overall prognosis remain extremely poor Consult palliative care for further establishment of goals of care and pain management-appreciate input Patient is DNR/DNI, Abdominal pain: secondary to metastatic malignancy, with peritoneal carcinomatosis P.o. Roxanol, ordered by palliative care was altered for intermittent IV morphine, will change to IV Dilaudid Added fentanyl patch Hypokalemia replace Severe protein calorie malnutrition: Due to metastatic malignancy, dietitian consulted for nutritional supplement Very poor prognosis History paroxysmal A. fib continue digoxin pt currently in NSR Pancytopenia Follow H&H, transfusion for hemoglobin less than 7 DNR/DNI PCP: Alison DVT ppx: SCDs/Teds given thrombocytopenia Disposition: To be determined, patient presents with severe deconditioning, PT OT evaluation requested Overall very poor prognosis with limited life expectancy pt is willing to go to short-term rehab later transition to hospice care if needed. Admission and Anticipated Discharge Date Admission Date: January 16, 2021 Subjective Pt was seen and examined for follow of pain Lying in bed with no distress Pt said that he feels much better Denies any chest pain, palpitation, dizziness and fever Review of Systems Review of Systems: All systems reviewed & are unremarkable except as noted in Subjective Physical Exam Physical Exam: General- No acute distress Head- atraumatic Eyes- PERRL, EOMI, ENT- oropharynx clear Neck- supple, no JVD Lungs- clear to auscultation Heart- regular rhythm; no murmur Abdomen- normal bowel sounds, soft, nontender Extremities- no calf tenderness Neuro- alert, oriented x 3; PERRL, EOMI; no facial palsy; no dysarthria Skin- warm & dry Results & Data Results & Data ([facility]) Vital Signs (Past 12 Hours) Vital Signs Temp Pulse Resp BP Pulse Ox 01/22/21 15:44 36.9 C 76 16 120/69 92 01/22/21 07:50 36.7 C 78 20 158/75 H 96
[2021-01-22] MEDS: DIGOXIN 0.25 MG TAB PO SCH (21:59)
[2021-01-23] MEDS: DOCUSATE SODIUM 100 MG CAP PO SCH ×2 (08:55→21:00)
[2021-01-23] MEDS: CHECK fentaNYL PATCH PLACEMENT SCH ×3 (08:55→23:53)
[2021-01-23] MEDS: LACTOBACILLUS ACIDOPHILUS 1 GM PACK PO SCH ×3 (08:55→17:41)
[2021-01-23] MEDS: CEROVITE ADV FORMULA TAB PO SCH (08:56)
[2021-01-23] MEDS: DULoxetine HCL 30 MG CAP PO SCH (08:56)
[2021-01-23] MEDS: fentaNYL 25 MCG/HR TDSY TD SCH (09:02)
[2021-01-23] MEDS: oxyCODONE HCL IR 5 MG TAB (IMMEDIATE RELEASE) PO PRN ×2 (14:03→21:02)
--- NOTE | 2021-01-23 16:46 | Hospitalist Progress Note ---
Date of Service January 23, 2021 Assessment & Plan (1) Metastatic urothelial carcinoma: (2) Pancytopenia due to chemotherapy: (3) Peritoneal carcinomatosis: (4) History of COVID-19: (5) Abdominal pain: (6) Diarrhea: (7) Hypokalemia: Corrected: Due to GI loss This is a 67-year-old male who has significant past medical history of PAF, HLD, metastatic bladder CA, chronic prostatitis pancytopenia secondary to chemotherapy, history of recent COVID-19 infection presents to ED at the [facility] secondary to abdominal pain, weight loss and diarrhea x1 month. , encouraged for p.o. intake, dietitian consulted Significant deconditioning noted, ordered for PT OT eval Patient's overall prognosis remains extremely poor Latifa care consulted, appreciate input Intractable pain secondary to bone metastasis: Ordered for fentanyl patch 12 MCG, dose could be increased if patient pain remains uncontrolled Continue as needed narcotics for breakthrough pain Pain management consulted Metastatic urothelial carcinoma/peritoneal carcinomatosis Widespread metastatic disease of urothelial cell carcinoma with evidence of metastasis to retroperitoneal, iliac chain adenopathy, masslike lesions extending into rectosigmoid colon, pelvic mass lesions extending and compressing on left ureter and evidence of likely peritoneal carcinomatosis- Status post TURBT/chemotherapy Follows [facility] hematology/oncology-overall prognosis very poor CT abdomen pelvis on admission:: Findings are consistent with widespread metastatic disease. There is significant wall thickening with surrounding inflammation involving the bladder and rectum. This may be represent treatment related radiation cystitis/proctitis. There are bulky mass lesions identified in the pelvis consistent with metastatic disease. These encase the rectosigmoid colon which does not appear obstructed. There is bulky retroperitoneal and iliac chain lymphadenopathy. There are at least 2 pulmonary nodules identified at the lung bases, likely representing metastatic disease. There is evidence of peritoneal carcinomatosis. 8. There is mild to moderate left hydroureteronephrosis, likely related to pelvic mass lesions. Trace abdominal ascites. Imaging suggestive of progression of metastatic disease, with new presentation of peritoneal carcinomatosis, in spite of receiving aggressive chemo treatment Overall prognosis remain extremely poor Consult palliative care for further establishment of goals of care and pain management-appreciate input Patient is DNR/DNI, Abdominal pain: secondary to metastatic malignancy, with peritoneal carcinomatosis P.o. Roxanol, ordered by palliative care was altered for intermittent IV morphine, will change to IV Dilaudid Added fentanyl patch Hypokalemia replace Severe protein calorie malnutrition: Due to metastatic malignancy, dietitian consulted for nutritional supplement Very poor prognosis History paroxysmal A. fib continue digoxin pt currently in NSR Pancytopenia Follow H&H, transfusion for hemoglobin less than 7 DNR/DNI PCP: Alison DVT ppx: SCDs/Teds given thrombocytopenia Disposition: To be determined, patient presents with severe deconditioning, PT OT evaluation requested Overall very poor prognosis with limited life expectancy pt is willing to go to short-term rehab later transition to hospice care if needed. waiting for placement to rehab Admission and Anticipated Discharge Date Admission Date: January 16, 2021 Subjective Pt was seen and examined for follow of pain Lying in bed with no distress Denies any chest pain, palpitation, dizziness and fever Review of Systems Review of Systems: All systems reviewed & are unremarkable except as noted in Subjective Physical Exam Physical Exam: General- No acute distress Head- atraumatic Eyes- PERRL, EOMI, ENT- oropharynx clear Neck- supple, no JVD Lungs- clear to auscultation Heart- regular rhythm; no murmur Abdomen- normal bowel sounds, soft, nontender Extremities- no calf tenderness Neuro- alert, oriented x 3; PERRL, EOMI; no facial palsy; no dysarthria Skin- warm & dry Results & Data Results & Data ([facility]) Vital Signs (Past 12 Hours) Vital Signs Temp Pulse Resp BP Pulse Ox 01/23/21 16:08 37.0 C 64 16 134/77 95 01/23/21 08:55 37.0 C 67 16 135/81 94
[2021-01-23] MEDS: DIGOXIN 0.25 MG TAB PO SCH (21:03)
[2021-01-24] MEDS: LACTOBACILLUS ACIDOPHILUS 1 GM PACK PO SCH ×3 (08:43→17:47)
[2021-01-24] MEDS: CHECK fentaNYL PATCH PLACEMENT SCH ×2 (08:44→17:47)
[2021-01-24] MEDS: DOCUSATE SODIUM 100 MG CAP PO SCH (08:44)
[2021-01-24] MEDS: DULoxetine HCL 30 MG CAP PO SCH (08:45)
[2021-01-24] MEDS: CEROVITE ADV FORMULA TAB PO SCH (08:46)
[2021-01-24] MEDS: oxyCODONE HCL IR 5 MG TAB (IMMEDIATE RELEASE) PO PRN (08:49)
[2021-01-24] MEDS: METHYLNALTREXONE BROMIDE 12 MG/0.6 ML VIAL SQ SCH (08:52)
[2021-01-24] MEDS: HEPARIN 100 UNIT/ML 5ML FLUSH FLUSH PRN ×2 (09:00→16:08)
--- NOTE | 2021-01-24 11:15 | Palliative Care Progress Note ---
Date of Service January 24, 2021 Assessment & Plan (1) Palliative care encounter: Patient was willing and able to have a good conversation with me. It seems like he is processing his diagnosis. 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 He expressed missing his who in November from bowel cancer and stopped hemodialysis. His goal includes moving towards his daughters to be able to see his two grandchildren ages 3 and 2. Plans are moving forward that he will likely go to [facility] here, and transition to [facility] based on bed availability. He is tolerating the Fentanyl 25 mcg TD Q3 d, Relisotr, and has not utilized any doses of Dilaudid. He has utilized three doses of Oxycodone. Palliative Medicine will continue to follow. Admission and Anticipated Discharge Date Admission Date: January 16, 2021 Subjective Date of service 01/21/2021 Patient resting in his bed. Pain is well controlled some drowsiness noted See A/P for further details Review of Systems Review of Systems: [place] Symptom Assessment Scale Pain 0/3 Dyspnea 0/3 Anxiety 1/3 Fatigue 1/3 Nausea 0/3 Palliative Performance Score 40% Physical Exam Constitutional: + ill appearing ENMT: Mouth: + dry oral mucous membranes Respiratory: normal respiratory effort; no labored breathing Gastrointestinal (Abdomen): normal bowel sounds, soft, nontender, no hepatosplenomegaly Musculoskeletal: Extremities: extremities normal to inspection and + muscle atrophy Neurologic: awake; not confused Psychiatric: Orientation: alert and oriented x 3 Mood: + dysphoric mood Insight: good insight Results & Data ([facility]) Vital Signs (Past 12 Hours) Vital Signs Temp Pulse Resp BP Pulse Ox 01/24/21 07:23 36.9 C 68 16 127/78 95 PG Care Time/CCT Total # of Minutes Spent Total Time Spent with Patient: Total time spent is greater than 50% in coordination of care (as documented) at patient's floor/unit and/or counseling patient: 35 minutes with > 50% of that time spent assessing the patient, discussing goals of care, evaluating symptom management, and collaborating with IDT Coding Level of Care Code 51635 Subseq Hosp Care Lvl 3 Diagnoses Palliative care encounter Z51.5 Time Spent (min) 35
--- NOTE | 2021-01-24 15:02 | Hospitalist Progress Note ---
Date of Service January 24, 2021 Assessment & Plan (1) Metastatic urothelial carcinoma: With widespread metastasis to the bones, abdomen, Discussed regarding poor prognosis with patient and patient's brother and daughter, aware of the poor prognosis Wants patient to be comfortable at rest his clinical status declines, palliative care following (2) Pancytopenia due to chemotherapy: (3) Peritoneal carcinomatosis: (4) History of COVID-19: (5) Abdominal pain: (6) Diarrhea: (7) Hypokalemia: Intractable pain secondary to bone metastasis: Ordered for fentanyl patch 12 MCG, dose could be increased if patient pain remains uncontrolled Continue as needed narcotics for breakthrough pain Pain management consulted/overall prognosis remains very poor Pain management recommendations : Continue Fentanyl patch 25mcg/hr. Continue Oxycodone 10mg x 4 hours PRN pain. Continue Cymbalta 30mg daily. Continue bowel regimen of Colace and Relistor. Metastatic urothelial carcinoma/peritoneal carcinomatosis Widespread metastatic disease of urothelial cell carcinoma with evidence of metastasis to retroperitoneal, iliac chain adenopathy, masslike lesions extending into rectosigmoid colon, pelvic mass lesions extending and compressing on left ureter and evidence of likely peritoneal carcinomatosis- Status post TURBT/chemotherapy Follows [facility] hematology/oncology-overall prognosis very poor CT abdomen pelvis on admission:: Findings are consistent with widespread metastatic disease. There is significant wall thickening with surrounding inflammation involving the bladder and rectum. This may be represent treatment related radiation cystitis/proctitis. There are bulky mass lesions identified in the pelvis consistent with metastatic disease. These encase the rectosigmoid colon which does not appear obstructed. There is bulky retroperitoneal and iliac chain lymphadenopathy. There are at least 2 pulmonary nodules identified at the lung bases, likely representing metastatic disease. There is evidence of peritoneal carcinomatosis. 8. There is mild to moderate left hydroureteronephrosis, likely related to pelvic mass lesions. Trace abdominal ascites. Imaging suggestive of progression of metastatic disease, with new presentation of peritoneal carcinomatosis, in spite of receiving aggressive chemo treatment Overall prognosis remain extremely poor Consult palliative care for further establishment of goals of care and pain management-appreciate input Patient is DNR/DNI, Abdominal pain: secondary to metastatic malignancy, with peritoneal carcinomatosis P.o. Roxanol, ordered by palliative care was altered for intermittent IV morphine, will change to IV Dilaudid Added fentanyl patch Hypokalemia Stable Severe protein calorie malnutrition: Due to metastatic malignancy, dietitian consulted for nutritional supplement Very poor prognosis History paroxysmal A. fib continue digoxin pt currently in NSR Pancytopenia Follow H&H, transfusion for hemoglobin less than 7 DNR/DNI PCP: Alison DVT ppx: SCDs/Teds given thrombocytopenia Disposition: To be determined, patient presents with severe deconditioning, PT OT evaluation requested Overall very poor prognosis with limited life expectancy pt is willing to go to short-term rehab later transition to hospice care if needed. Transfer to SNF Admission and Anticipated Discharge Date Admission Date: January 16, 2021 Subjective Pt was seen and examined for follow up of pain Lying in bed with no distress He said that pain is controlled Denies any chest pain, palpitation, dizziness and SOB Review of Systems Review of Systems: All systems reviewed & are unremarkable except as noted in Subjective Physical Exam Physical Exam: General- No acute distress Head- atraumatic Eyes- PERRL, EOMI, ENT- oropharynx clear Neck- supple, no JVD Lungs- clear to auscultation Heart- regular rhythm; no murmur Abdomen- normal bowel sounds, soft, nontender Extremities- no calf tenderness Neuro- alert, oriented x 3; PERRL, EOMI; no facial palsy; no dysarthria Skin- warm & dry Results & Data Results & Data ([facility]) Vital Signs (Past 12 Hours) Vital Signs Temp Pulse Resp BP Pulse Ox 01/24/21 07:23 36.9 C 68 16 127/78 95
--- NOTE | 2021-01-26 09:29 | Discharge Summary ---
Date of Service January 24, 2021 Admission HPI Per Admitting Provider This is a 67-year-old male who has significant past medical history of PAF, HLD, metastatic bladder CA, chronic prostatitis pancytopenia secondary to chemotherapy, history of recent COVID-19 infection presents to ED at the referral of oncology secondary to abdominal pain, weight loss and diarrhea x1 month. Daughter is at bedside who provides most of history secondary to fatigue and weakness outpatient. She elicits approximately 3 weeks ago patient was diagnosed with COVID-19 and had fever, chills, respiratory symptoms and fatigue. He recovered from this without any pulmonary involvement. Through the past month he has been complaining of significant abdominal pain, suprapubic and bilateral lower quadrants. Pain is constant, nothing makes it better or worse. He has lost 23 pounds in the past month and overall has had significant decrease water intake. He is drinking water to try to stay hydrated. He also has multiple loose stools a day despite lack of oral intake. He recently was on a course of antibiotics due to a subcutaneous tissue for infection. Oncology was concern for possible C. difficile which is why he was referred to ED. Patient denies any recent fever, chills, sweats, syncope, chest pain, shortness of breath, cough, nausea, vomiting, dysuria, increased urgency or frequency with urination, hematuria, melena or hematochezia. He does feel lightheaded when walking and overall generally weak. In regards to metastatic bladder cancer initially was diagnosed in 06/2018. He had a TURBT, local BCG treatment x6 completed October 2018, cisplatin and gemcitabine q. 21 days for 4 cycles. As of 09/12/2020 he had received 4 cycles of chemotherapy and is currently been off chemotherapy since. Patient did undergo CT abdomen pelvis 01/08/2021 revealed diffuse perivesicular stranding, interval increase in size of some pelvic retroperitoneal lymph nodes, mild left renal hydronephrosis with dilation of ureter to the left mid ureter which may reflect extrinsic compression from metastatic lymphadenopathy, ill-defined soft tissue mass in the pelvis which may relate to conglomerate lymphadenopathy increased from prior study also likely worsened metastatic disease, increase in size of metastatic nodule in the left lower lobe. Given persistent abdominal pain ER repeat scan on 01/13 which did not reveal any worsened findings. CT scan abdomen pelvis today revealed similar findings; however it did also reveal evidence of peritoneal carcinomatosis and trace abdominal ascites. His stool for C. difficile was negative in ED. ER provider perform rectal exam which was heme negative, revealed brown stool and he did hit masslike lesion. He remained hemodynamically stable in ER. There are no signs or symptoms of sepsis. He is afebrile and WBC is 3.82. Admission Exam Per Admitting Provider Constitutional: Chronically ill-appearing, male, vitals as above, NAD, sitting up in bed, unable to speak in full sentences secondary to fatigue and ill feeling Head: Normocephalic, Atraumatic Eyes: PERRL, conjunctivae normal, anicteric sclerae ENMT: external ear and nose normal, oropharynx normal mucous membranes dry Neck: trachea midline, no thyromegaly normal visual inspection Respiratory: normal respiratory effort, lungs clear to auscultation, no wheeze, rales, rhonchi. Normal insp/exp effort, no accessory muscle use Cardiovascular: RRR, no murmur, no edema Vessels: no JVD or carotid bruit Chest: Right anterior chest wall port in place, normal inspection of chest Abdomen: Abdomen tender to palpation, no rebound, guarding rigidity, normal bowel sounds, soft Musculoskeletal: no cyanosis or clubbing, active range of motion x4 Skin: no rashes, warm and dry moderate turgor Neurologic: PERRL, EOMI, accommodation nl, no face palsy, no dysarthria CN's II-XI intact bilaterally and moves all extremities Psychiatric: A+Ox3, euthymic affect : deferred Principal Diagnosis (1) Metastatic urothelial carcinoma: (2) Pancytopenia due to chemotherapy: (3) Peritoneal carcinomatosis: (4) History of COVID-19: (5) Abdominal pain: (6) Diarrhea: (7) Hypokalemia: Discharge Exam General- No acute distress Head- atraumatic Eyes- PERRL, EOMI, ENT- oropharynx clear Neck- supple, no JVD Lungs- clear to auscultation Heart- regular rhythm; no murmur Abdomen- normal bowel sounds, soft, nontender Extremities- no calf tenderness Neuro- alert, oriented x 3; PERRL, EOMI; no facial palsy; no dysarthria Skin- warm & dry Discharge Data Allergies Allergy/AdvReac Type Severity Reaction Status Date / Time [id number]-Pqi Reductase AdvReac Intermediate SWELLING Verified 01/20/21 08:56 Inhibitor LEGS,MEMORY ISSUES Consultations 01/16/21 13:23 ED Decision to Admit Stat 01/16/21 14:05 Consult Palliative Care Routine Consult Urology Routine 01/19/21 16:54 Consult Pain Management Routine Ordered Studies 01/16/21 10:14 CT abd pelvis IV con only Stat 01/16/21 20:15 US abdomen ltd ascites Routine ULTRASOUND OF THE ABDOMEN ASCITES CHECK CLINICAL HISTORY: Lower abdominal pain. Abdominal ascites. COMPARISON STUDY: Abdominal CT dated 01/16/2021. FINDINGS: Real-time grayscale sonography of all 4 quadrants of the abdomen is performed to assess for abdominal ascites. No abdominal ascites is identified. IMPRESSION: No abdominal ascites is identified. Electronically signed by: Balbir Anaya M.D. 01/17/2021 7:16 AM Dictated: 01/17/21 0715Transcribed: 01/17/[address] SCAN OF THE ABDOMEN AND PELVIS WITH IV CONTRAST CLINICAL HISTORY: Lower abdominal pain. Diarrhea. Bladder cancer. COMPARISON STUDY: No priors. TECHNIQUE: Following the IV administration of 85 cc of Optiray, CT scan of the abdomen and pelvis is performed from the lung bases to the proximal femora. Images are reviewed in the axial, sagittal, and coronal planes. IV contrast was administered without complication. A dose lowering technique was utilized adhering to the principles of ALARA. CT DOSE: 418.75 mGy.cm FINDINGS: Lung bases: The heart is top normal in size and without pericardial effusion. There are coronary artery calcifications. There is a 2 cm lobular pulmonary nodules seen at the left lung base on image #7. A 0.9 cm irregular pulmonary nodules seen at the right lung base on image #43. No airspace consolidation or pleural effusion is identified. A fat-containing Bochdalek hernia is noted at the right lung base. There is bibasilar scarring/atelectasis. Liver: The contrast-enhanced liver is normal in size, contour, and attenuation. There is no intrahepatic biliary ductal dilatation. The hepatic veins and portal veins are patent. Gallbladder: A calcified gallstone measures at least 2 [address] no [address] evidence of acute cholecystitis. Spleen: The spleen is mildly enlarged measuring 13.7 cm in length. Pancreas: Unremarkable. Adrenal glands: Unremarkable. Kidneys: The contrast enhanced kidneys demonstrate mild cortical atrophy. There is mild to moderate left hydroureteronephrosis. No hydronephrosis is seen on the right. There is a 4 mm nonobstructing calculus in the right lower pole. The kidneys enhance symmetrically. Bilateral renal cysts measure up to 1.5 cm. Additional subcentimeter cortical hypodensities also likely represent cysts but are too small for definitive characterization. Abdominal vasculature: The abdominal aorta is normal in course and caliber noting mild to moderate atherosclerotic calcification. Bowel: Residual enteric contrast is noted in the colon. There is no bowel obstruction. There is circumferential rectal wall thickening and perirectal inflammation. The rectosigmoid colon is encased by pelvic mass lesions. The appendix is well-visualized and normal. Peritoneum: There is trace perihepatic ascites. No intraperitoneal free air is identified. There are numerous subcentimeter peritoneal nodules (best seen on axial image #187). Lymphadenopathy: There is bulky retroperitoneal and iliac chain lymphadenopathy. A left periaortic cameron aggregate on image #142 measures 3.3 x 2.1 cm. A right iliac chain node on image #291 measures 2.3 x 2.0 cm. The enlarged retrocrural node on image #62 measures 1.7 x 1.2 cm. Pelvic viscera: The prostate gland is enlarged and markedly heterogeneous, measuring 5.4 cm transverse diameter. There is median lobe hypertrophy. The bladder is decompressed and not assessed. The bladder wall is partially thickened and there is pericystic inflammation. Hyperdense material is suggested within the bladder lumen and may represent excreted contrast versus blood products. There are large mass lesions identified in the pelvis which are located posterior to the bladder and surrounding the rectosigmoid colon. A lesion in the left posterior pelvis on image #308 measures approximately 5 x 2.5 cm. A lesion anterior to the sacrum measures approximately 5 x 3.5 cm. Skeletal structures: The skeletal structures are osteopenic. There is mild lumbosacral spondylosis. No lytic or blastic lesions are seen. IMPRESSION: 1. Findings are consistent with widespread metastatic disease. 2. The bladder is decompressed and not well evaluated. Hyperdense material within the bladder lumen may represent excreted IV contrast or possibly blood products. 3. There is significant wall thickening with surrounding inflammation involving the bladder and rectum. This may be represent treatment related radiation cystitis/proctitis. Clinical correlation will be required. 4. There are bulky mass lesions identified in the pelvis consistent with metastatic disease. These encase the rectosigmoid colon which does not appear obstructed. 5. There is bulky retroperitoneal and iliac chain lymphadenopathy. 6. There are at least 2 pulmonary nodules identified at the lung bases, likely representing metastatic disease. 7. There is evidence of peritoneal carcinomatosis. 8. There is mild to moderate left hydroureteronephrosis, likely related to pelvic mass lesions. 9. Cholelithiasis. 10. Mild splenomegaly. 11. Trace abdominal ascites. 12. Right-sided nephrolithiasis. 13. Additional findings as above. ACT 112: Positive. There are findings on this exam that require communication between the performing entity and the patient following Patient Test Result Information Act ([place] Act 112) guidelines. Electronically signed by: Balbir Anaya M.D. 01/16/2021 12:45 PM Dictated: 01/16/21 1225Transcribed: 01/16/21 1225 XR chest 1V portable CLINICAL HISTORY: weakness COMPARISON STUDY: No previous studies for comparison. FINDINGS: Lung volumes are normal. Lungs are clear. There is no pneumothorax or pleural effusion. Cardiac size is normal. Mediastinal contours are normal. There is no evidence for pulmonary edema. Right internal jugular Oepyma-m-Anwn is in place. A 2.1 cm nodular opacity projects over the left lower lung. IMPRESSION: 1. No acute cardiopulmonary findings. 2. 1 cm nodular opacity which projects over the left lower lung. This could reflect a nipple shadow or pulmonary nodule. Nonemergent PA and shallow oblique radiographs of the chest with nipple markers could be obtained. ACT 112: Negative or not required by law. Electronically signed by: Polo Smith M.D. 01/16/2021 10:39 AM Dictated: 01/16/21 1037Transcribed: 01/16/21 1037 Hospital Course (1) Metastatic urothelial carcinoma: With widespread metastasis to the bones, abdomen, Discussed regarding poor prognosis with patient and patient's brother and daughter, aware of the poor prognosis Wants patient to be comfortable at rest his clinical status declines, palliative care following (2) Pancytopenia due to chemotherapy: (3) Peritoneal carcinomatosis: (4) History of COVID-19: (5) Abdominal pain: (6) Diarrhea: (7) Hypokalemia: Intractable pain secondary to bone metastasis: Ordered for fentanyl patch 12 MCG, dose could be increased if patient pain remains uncontrolled Continue as needed narcotics for breakthrough pain Pain management consulted/overall prognosis remains very poor Pain management recommendations : Continue Fentanyl patch 25mcg/hr. Continue Oxycodone 10mg x 4 hours PRN pain. Continue Cymbalta 30mg daily. Continue bowel regimen of Colace and Relistor. Metastatic urothelial carcinoma/peritoneal carcinomatosis Widespread metastatic disease of urothelial cell carcinoma with evidence of metastasis to retroperitoneal, iliac chain adenopathy, masslike lesions extending into rectosigmoid colon, pelvic mass lesions extending and compressing on left ureter and evidence of likely peritoneal carcinomatosis- Status post TURBT/chemotherapy Follows [facility] hematology/oncology-overall prognosis very poor CT abdomen pelvis on admission:: Findings are consistent with widespread metastatic disease. There is significant wall thickening with surrounding inflammation involving the bladder and rectum. This may be represent treatment related radiation cystitis/proctitis. There are bulky mass lesions identified in the pelvis consistent with metastatic disease. These encase the rectosigmoid colon which does not appear obstructed. There is bulky retroperitoneal and iliac chain lymphadenopathy. There are at least 2 pulmonary nodules identified at the lung bases, likely representing metastatic disease. There is evidence of peritoneal carcinomatosis. 8. There is mild to moderate left hydroureteronephrosis, likely related to pelvic mass lesions. Trace abdominal ascites. Imaging suggestive of progression of metastatic disease, with new presentation of peritoneal carcinomatosis, in spite of receiving aggressive chemo treatment Overall prognosis remain extremely poor Consult palliative care for further establishment of goals of care and pain management-appreciate input Patient is DNR/DNI, Abdominal pain: secondary to metastatic malignancy, with peritoneal carcinomatosis P.o. Roxanol, ordered by palliative care was altered for intermittent IV morphine, will change to IV Dilaudid Added fentanyl patch Hypokalemia Stable Severe protein calorie malnutrition: Due to metastatic malignancy, dietitian consulted for nutritional supplement Very poor prognosis History paroxysmal A. fib continue digoxin pt currently in [facility] Pancytopenia Follow H&H, transfusion for hemoglobin less than 7 DNR/DNI PCP: Alison DVT ppx: SCDs/Teds given thrombocytopenia Disposition: To be determined, patient presents with severe deconditioning, PT OT evaluation requested Overall very poor prognosis with limited life expectancy pt is willing to go to short-term rehab later transition to hospice care if needed. Transfer to SNF Total Time Total Time Spent Total Time Spent (In Minutes): 35 minutes Total Time Includes: Examination of the Patient, Discharge Planning, Medication Reconciliation, Communication With Other Providers and Other Discharge Plan Discharge Items Patient Disposition: Transfer Shelter Fac Reason For Visit: METASTTIC BLADDER CA, HYPOKALEMIA, WEAKNESS Discharge Diagnosis: (1) Metastatic urothelial carcinoma: (2) Pancytopenia due to chemotherapy: (3) Peritoneal carcinomatosis: (4) History of COVID-19: (5) Abdominal pain: (6) Diarrhea: (7) Hypokalemia: Condition on Discharge: Fair Activity: Resume your previous activity Non-emergency contact: Primary Care Provider Call non-emergency contact if: you have any medication questions Follow-up/Referrals: Phillip Rosas MD [Primary Care Provider] - Diet: Regular Diet Texture: Easy to Chew Addtl Attending Provider Instructions: Follow up with primary care provider at the facility Follow up with palliative care Continue pain management Fall precaution Pending Studies at Discharge: No Stand-Alone Forms: [employer] Skilled Items Patient informed of condition?: Yes DNR: Yes Discharge Level of Care: Skilled Communicable Disease: No Discharge Prognosis: Stable Lines: None Urinary Catheter: No Medications and DC Order Prescriptions: New duloxetine 30 mg Capsule,Delayed Release(Dr/Ec) 30 mg PO QAM Qty: 30 RF: 0 fentanyl 25 mcg/hr Patch 72 Hour 25 mcg transdermal Q3D Qty: 5 RF: 0 oxycodone 5 mg Tablet 10 mg PO Q4 PRN (Reason: pain, moderate) Qty: 12 RF: 0 docusate sodium 100 mg Capsule 100 mg PO BID Qty: 60 RF: 0 polyethylene glycol 3350 [Miralax] 17 gram Powder In Packet 17 g PO DAILY PRN (Reason: constipation) Qty: 30 RF: 0 Relistor 12 mg/0.6 mL syringe 0.6 ml subcut Q2D Qty: 4.2 RF: 0 Continued ondansetron HCl 8 mg Tablet 8 mg PO Q8H PRN (Reason: Nausea) RF: 0 prochlorperazine maleate [Compazine] 10 mg Tablet 10 mg PO Q8H PRN (Reason: Nausea) RF: 0 digoxin 250 mcg (0.25 mg) Tablet 250 mcg PO HS RF: 0 One-A-Day Men's 50 Plus 400-20-370 mcg Tablet 1 tab PO QAM RF: 0 Discontinued tramadol 50 mg Tablet 50 mg PO Q4H PRN (Reason: Pain) RF: 0 Discharge Orders: Discharge Order (Routine); Ordered 01/24/21 Ordered By: Jenna Lopez Admission Data Admit Date/Time: 01/16/21 13:30 Attending Provider: Jenna Lopez Admit Provider: Ronny Hastings Primary Care Provider: Phillip Rosas Other Providers: Ronny Hastings ; Leena Lim ; Jean Claude Rios ; Angela Johnson ; Etta Grayson Other Interventions: Discharge Summary Assessment (RN) Last Done: 01/24/21 15:31
== END 2021-01-24 18:30 ==
LOC: ED 09:09 → SUATTDRO 13:30 → 2N 13:30 → 3W 01-19 13:37